=== PATIENT | female | born 1960 | race American Indian/Alaskan Native ===

== ENCOUNTER 2018-08-08 10:00 | Inpatient (IN) | payer MEDICARE ==
[2018-08-08] MEDS ORDERED: ZOFRAN IV ONE (10:53)
[2018-08-08] MEDS ORDERED: SUBLIMAZE IV ONE ×4 (10:53→19:08)
--- NOTE | 2018-08-08 11:03 | Emergency Department Report ---
ED General Adult HPI - General Chief complaint: Chest Pain Stated complaint: CHEST PAIN/L UNDERARM PAIN Time Seen by Provider: 08/08/18 10:46 Source: patient Mode of arrival: Ambulatory Limitations: No Limitations - History of Present Illness Initial comments: Patient is 58 years old female with history of arthritis, history of breast cancer with bilateral mastectomy in 2002. History of ovarian cancer in 2012. Patient presented to the ER complaining of left sided chest pain, sharp in nature and increases when she take a deep breath. Patient also noticed that she has some swelling in the mastectomy area on the left side that comes and goes for the last 2 weeks. Patient stated that she checked her blood pressure this morning at home and the reading was 230/120. Patient stated that she take clonidine and she took another tablets today to help. Patient denies any fever, chills, cough, nausea or vomiting. - Related Data Home Medications Medication Instructions Recorded Confirmed Last Taken Levothyroxine [Synthroid] 88 mcg PO QAM 04/23/13 01/31/15 01/31/15 amLODIPine [Norvasc] 5 mg PO DAILY 01/31/15 01/31/15 01/31/15 hydroCHLOROthiazide [HCTZ] 25 mg PO QDAY 01/31/15 01/31/15 01/31/15 Allergies Allergy/AdvReac Type Severity Reaction Status Date / Time morphine Allergy Severe Itching Verified 07/19/13 21:18 Latex, Natural Rubber Allergy dissolves Verified 07/19/13 11:38 skin figs Allergy Shortness Uncoded 07/09/13 14:31 of Breath lettuce Allergy Shortness Uncoded 07/09/13 14:31 of Breath onion Allergy Shortness Uncoded 07/09/13 14:31 of Breath peppers Allergy Shortness Uncoded 07/09/13 14:31 of Breath ED Review of Systems ROS: Stated complaint: CHEST PAIN/L UNDERARM PAIN Other details as noted in HPI Comment: All other systems reviewed and negative Constitutional: denies: chills, fever Respiratory: denies: cough, orthopnea, shortness of breath, SOB with exertion, SOB at rest, wheezing Cardiovascular: chest pain. denies: palpitations Gastrointestinal: denies: abdominal pain, nausea, vomiting, diarrhea, constipation, hematemesis, melena, hematochezia Musculoskeletal: denies: back pain Neurological: denies: headache, weakness, numbness, paresthesias, confusion, abnormal gait ED Past Medical Hx - Past Medical History Previous Medical History?: Yes Hx Hypertension: Yes (since 2002 Lisinopril) Hx Heart Attack/AMI: No Hx Congestive Heart Failure: No Hx Diabetes: No Hx Liver Disease: No Hx Arthritis: Yes (spine) Hx Headaches / Migraines: Yes (migraines) Hx Seizures: Yes (with ) Hx Asthma: No Hx COPD: No Hx HIV: No Additional medical history: hypothyroid, Zambrano's palsy, breast cancer - Surgical History Past Surgical History?: Yes Hx Breast Surgery: Yes (andrés mastectomy) Additional Surgical History: bilat mastectomy. left knee sx. left eye tumor - Social History Smoking Status: Former Smoker Substance Use Type: Alcohol, Prescribed - Medications Home Medications: Home Medications Medication Instructions Recorded Confirmed Last Taken Type Levothyroxine [Synthroid] 88 mcg PO QAM 04/23/13 01/31/15 01/31/15 History amLODIPine [Norvasc] 5 mg PO DAILY 01/31/15 01/31/15 01/31/15 History hydroCHLOROthiazide [HCTZ] 25 mg PO QDAY 01/31/15 01/31/15 01/31/15 History ED Physical Exam - General Limitations: No Limitations General appearance: alert, in no apparent distress - Head Head exam: Present: atraumatic, normocephalic, normal inspection - Eye Eye exam: Present: normal appearance, PERRL - ENT ENT exam: Present: normal exam, normal orophraynx, mucous membranes moist - Neck Neck exam: Present: normal inspection, full ROM. Absent: tenderness, meningismus, lymphadenopathy, thyromegaly - Respiratory Respiratory exam: Present: normal lung sounds bilaterally - Cardiovascular Cardiovascular Exam: Present: regular rate, normal rhythm, normal heart sounds - GI/Abdominal GI/Abdominal exam: Present: soft, normal bowel sounds. Absent: distended, tenderness, guarding, rebound, rigid, organomegaly, mass, bruit, pulsatile mass, hernia - Extremities Exam Extremities exam: Present: normal inspection, full ROM, normal capillary refill - Back Exam Back exam: Present: normal inspection, full ROM. Absent: CVA tenderness (R), CVA tenderness (L) - Neurological Exam Neurological exam: Present: alert, oriented X3, CN II-XII intact - Skin Skin exam: Present: warm, intact, normal color ED Course Vital Signs 08/08/18 08/08/18 10:12 13:08 Temperature 98.2 F Pulse Rate 87 Respiratory 18 20 Rate Blood Pressure 185/130 O2 Sat by Pulse 97 Oximetry - Reevaluation(s) Reevaluation #1: 08/08/18 16:43 While in the emergency room patient developed a generalized tonic clonic seizure, reported immediately with Ativan 2 mg. Patient received Keppra 1 g IV. ED Medical Decision Making - Lab Data Result diagrams: 08/08/18 10:57 08/08/18 10:57 - EKG Data -: EKG Interpreted by Mi EKG shows normal: sinus rhythm Rate: normal - EKG Data Interpretation: no acute changes - Radiology Data Radiology results: report reviewed - Medical Decision Making Patient is 58 years old female with history of arthritis, history of breast cancer with bilateral mastectomy in 2002. History of ovarian cancer in 2012. Patient presented to the ER complaining of left sided chest pain, sharp in nature and increases when she take a deep breath. Patient also noticed that she has some swelling in the mastectomy area on the left side that comes and goes for the last 2 weeks. Patient stated that she checked her blood pressure this morning at home and the reading was 230/120. Patient stated that she take clonidine and she took another tablets today to help. Patient denies any fever, chills, cough, nausea or vomiting. Labs reviewed and is unremarkable except for slightly elevated d-dimer for which patient had a VQ scan which is negative for pulmonary embolism. 2 sets of troponin is negative. Patient blood pressure was resistant. Patient received labetalol 20 mg IV, hydralazine 20 mg IV and nitroglycerin. Patient developed a generalized tonic colonic seizure in the ER for which patient received Ativan 2 mg and started on Keppra 1 g. Patient significant other stated that she had history of seizure and lost seizure was 6 months ago. I discussed the patient with Dr. Moser, he agreed to admit the patient to medical service for further management. Critical Care Time: Yes Critical care time in (mins) excluding proc time.: 30 Critical care attestation.: If time is entered above; I have spent that time in minutes in the direct care o f this critically ill patient, excluding procedure time. ED Disposition Clinical Impression: Chest pain, Seizure, Hypertensive emergency Disposition: DC-[id number] OP ADMIT IP TO THIS HOSP Is pt being admited?: Yes Condition: Stable Instructions: Chest Pain (ED), Hypertension (ED) Referrals: MARY PEREZ MD [Primary Care Provider] - 3-5 Days
[2018-08-08 11:21] LABS: Basophils % (Auto) 0.5 % (0.0-1.8); Eosinophils # (Auto) 0.1 K/mm3 (0.0-0.4); Eosinophils % (Auto) 2.2 % (0.0-4.3); Hematocrit 35.3 % (30.3-42.9); Hemoglobin 11.9 gm/dl (10.1-14.3); Lymphocytes # (Auto) 2.3 K/mm3 (1.2-5.4); Lymphocytes % (Auto) 35.9 % (13.4-35.0); Mean Corpuscular HGB Conc 34 % (30-34); Mean Corpuscular Volume 88 fl (79-97); Monocytes # (Auto) 0.3 K/mm3 (0.0-0.8); Monocytes % (Auto) 5.1 % (0.0-7.3); Platelet Count 339 K/mm3 (140-440); Red Blood Count 4.01 M/mm3 (3.65-5.03); Red Cell Distribution Width 15.7 % (13.2-15.2)
[2018-08-08 11:31] LABS: INR 0.97 (0.87-1.13)
[2018-08-08 11:32] LABS: Partial Thromboplastin Time 31.8 Sec. (24.2-36.6)
[2018-08-08 11:39] LABS: BUN/Creatinine Ratio 13; Blood Urea Nitrogen 9 mg/dL (7-17); Calcium 9.9 mg/dL (8.4-10.2); Hemolysis Index 9
[2018-08-08] MEDS ORDERED: NORMODYNE IV ONE (11:44)
[2018-08-08] MEDS: SUBLIMAZE IV ONE ×2 (12:10→20:35)
--- NOTE | 2018-08-08 12:20 | XRay Report ---
EXAM: XR CHEST ROUTINE 2V HISTORY: Chest Pain TECHNIQUE: PA and lateral chest x-ray dated August 06, 2018 at 11:24 AM. COMPARISON: None available. FINDINGS: The heart size and mediastinum are within normal limits. The lung garcia and costophrenic angles are clear. There is no acute parenchymal infiltrate, pleural effusion, or pneumothorax seen. The visua lized bony structures are within normal limits. IMPRESSION: 1. No evidence for acute cardiopulmonary disease seen. This document is electronically signed by Yusra Jay MD., August 08 2018 12:18:39 PM ET
[2018-08-08] MEDS ORDERED: NITROSTAT SL ONE (15:41)
[2018-08-08] MEDS ORDERED: APRESOLINE ONE (15:57)
--- NOTE | 2018-08-08 16:34 | Nuclear Medicine Report ---
PROCEDURE: NM LUNG SCAN PERF/VENT TECHNIQUE: Perfusion imaging of the lungs was performed in multiple planar projections. Ventilation images were obtained in the posterior projection during inhalation, equilibrium, and washout phases. Correlation with a chest x-ray dated 08/08/2018 was performed. DOSE: 12.0 millicuries Xe-133 gas; 4.5 millicuries 99m Tc MAA given IV. Injection site: RIGHT antecub ital fossa. HISTORY: CHEST PAIN,SOB, H/O DVT COMPARISONS: None . FINDINGS: The tracer distribution on perfusion imaging is homogeneous throughout. No unmatched segmental or sub segmental perfusion defects are identified to suggest the presence of pulmonary embolism. The ventilation study is also homogeneous and within normal limits. No evidence for gas trapping is n oted. IMPRESSION: Normal [place] V/Q scan This document is electronically signed by Cinthia Mcclelland MD., August 08 2018 04:32:51 PM ET
[2018-08-08] MEDS ORDERED: KEPPRA 1,000 MG/NS 0.75% 100ML 1,000 MG/100 ML BAG IV ONE (16:42)
[2018-08-08] MEDS ORDERED: ATIVAN ONE (16:44)
[2018-08-08] MEDS ORDERED: ATIVAN IV ONE (16:45)
--- NOTE | 2018-08-08 17:19 | Cat Scan Report ---
PROCEDURE: CT HEAD/BRAIN WO CON TECHNIQUE: Computerized tomography of the head was performed without contrast material. CT DOSE LENGTH PRODUCT: 805.4 mGycm HISTORY: seizure, elevated BP COMPARISONS: None . FINDINGS: Skull and scalp: Normal . Paranasal sinuses: Normal . Ventricles and subarachnoid spaces: Normal . Cerebrum: No evidence of hemorrhage, acute infarction or mass . Cerebellum and brainstem: No evidence of hemorrhage, acute infarction or mass . Vasculature: Normal . Other: None . IMPRESSION: No evidence of hemorrhage, acute infarction or mass . This document is electronically signed by Jeanna Chung MD., August 08 2018 05:16:58 PM ET
[2018-08-08] MEDS ORDERED: COREG PO ONE (19:08)
[2018-08-08] MEDS ORDERED: SUBLIMAZE ONE ×2 (19:12→19:23)
[2018-08-08] MEDS ORDERED: IBUPROFEN PO PRN (21:46)
[2018-08-08] MEDS ORDERED: ZOFRAN IV PRN (21:46)
[2018-08-08] MEDS ORDERED: DILAUDID IV PRN (21:46)
[2018-08-08] MEDS ORDERED: TYLENOL PO PRN (21:46)
[2018-08-08] MEDS ORDERED: SODIUM CHLORIDE FLUSH SYRINGE 10 ML IV PRN (21:46)
--- NOTE | 2018-08-08 21:46 | History and Physical Report ---
History of Present Illness Date of examination: 08/08/18 Date of admission: 08/08/18 18:27 Chief complaint: Chest pain for 2 weeks History of present illness: 58 years old female with history of arthritis, breast cancer with bilateral mastectomy in 2002 and ovarian cancer in 2012 presents to the ER complaining of left sided chest pain, sharp in nature and increases when she take a deep breath. Patient also noticed that she has some swelling in the mastectomy area on the left side that comes and goes for the last 2 weeks. Patient stated that she checked her blood pressure this morning at home and the reading was 230/120. Patient stated that she take clonidine and she took another tablets today to help. Patient denies any fever, chills, cough, nausea or vomiting. Past Medical History Previous Medical History?: Yes Hypertension: Yes (since 2002 Lisinopril) Arthritis: Yes (spine) Migraines: Yes (migraines) Seizures: Yes (with ) Additional medical history: hypothyroid, Zambrano's palsy, breast cancer Surgical History Past Surgical History?: Yes Hx Breast Surgery: Yes (andrés mastectomy) Additional Surgical History: bilat mastectomy. left knee sx. left eye tumor Social History Smoking Status: Former Smoker Substance Use Type: Alcohol, Prescribed Family History Htn Medications Home Medications: Home Medications Medication Instructions Recorded Confirmed Last Taken Type Levothyroxine [Synthroid] 88 mcg PO QAM 04/23/13 01/31/15 01/31/15 History amLODIPine [Norvasc] 5 mg PO DAILY 01/31/15 01/31/15 01/31/15 History hydroCHLOROthiazide [HCTZ] 25 mg PO QDAY 01/31/15 01/31/15 01/31/15 History Review of Systems ROS: Stated complaint: CHEST PAIN/L UNDERARM PAIN Other details as noted in HPI Comment: All other systems reviewed and negative Constitutional: denies: chills, fever Respiratory: denies: cough, orthopnea, shortness of breath, SOB with exertion, SOB at rest, wheezing Cardiovascular: chest pain. denies: palpitations Gastrointestinal: denies: abdominal pain, nausea, vomiting, diarrhea, constipation, hematemesis, melena, hematochezia Musculoskeletal: denies: back pain Neurological: denies: headache, weakness, numbness, paresthesias, confusion, abnormal gait Medications and Allergies Allergies Allergy/AdvReac Type Severity Reaction Status Date / Time morphine Allergy Severe Itching Verified 07/19/13 21:18 Latex, Natural Rubber Allergy dissolves Verified 07/19/13 11:38 skin figs Allergy Shortness Uncoded 07/09/13 14:31 of Breath lettuce Allergy Shortness Uncoded 07/09/13 14:31 of Breath onion Allergy Shortness Uncoded 07/09/13 14:31 of Breath peppers Allergy Shortness Uncoded 07/09/13 14:31 of Breath Home Medications Medication Instructions Recorded Confirmed Last Taken Type Levothyroxine [Synthroid] 88 mcg PO QAM 04/23/13 08/08/18 08/08/18 History amLODIPine [Norvasc] 5 mg PO DAILY 01/31/15 08/08/18 08/08/18 History hydroCHLOROthiazide [HCTZ] 25 mg PO QDAY 01/31/15 08/08/18 08/08/18 History Exam - Constitutional Vitals: Temp Pulse Resp BP Pulse Ox 98.2 F 103 H 12 126/102 98 08/08/18 10:12 08/08/18 19:30 08/08/18 19:30 08/08/18 20:30 08/08/18 20:30 General appearance: Present: no acute distress, well-nourished - EENT Eyes: Present: PERRL ENT: hearing intact, clear oral mucosa - Neck Neck: Present: supple, normal ROM - Respiratory Respiratory effort: normal Respiratory: bilateral: CTA - Cardiovascular Heart rate: 78 Rhythm: regular Heart Sounds: Present: S1 & S2. Absent: rub, click - Extremities Extremities: no ischemia, pulses intact, pulses symmetrical, No edema Peripheral Pulses: within normal limits - Abdominal General gastrointestinal: Present: soft, non-tender, non-distended, normal bowel sounds Female genitourinary: Present: normal - Rectal Rectal Exam: deferred - Integumentary Integumentary: Present: clear, warm, dry - Musculoskeletal Musculoskeletal: gait normal, strength equal bilaterally - Psychiatric Psychiatric: appropriate mood/affect, intact judgment & insight - Neurologic Neurologic: CNII-XII intact, moves all extremities - Allied Health Allied health notes reviewed: nursing Results - Labs CBC & Chem 7: 08/08/18 10:57 08/08/18 10:57 Labs: Laboratory Last Values WBC 6.4 K/mm3 (4.5-11.0) 08/08/18 10:57 RBC 4.01 M/mm3 (3.65-5.03) 08/08/18 10:57 Hgb 11.9 gm/dl (10.1-14.3) 08/08/18 10:57 Hct 35.3 % (30.3-42.9) 08/08/18 10:57 MCV 88 fl (79-97) 08/08/18 10:57 MCH 30 pg (28-32) 08/08/18 10:57 MCHC 34 % (30-34) 08/08/18 10:57 RDW 15.7 % (13.2-15.2) H 08/08/18 10:57 Plt Count 339 K/mm3 (140-440) 08/08/18 10:57 Lymph % (Auto) 35.9 % (13.4-35.0) H 08/08/18 10:57 [place] % (Auto) 5.1 % (0.0-7.3) 08/08/18 10:57 Eos % (Auto) 2.2 % (0.0-4.3) 08/08/18 10:57 Baso % (Auto) 0.5 % (0.0-1.8) 08/08/18 10:57 Lymph # 2.3 K/mm3 (1.2-5.4) 08/08/18 10:57 [place] # 0.3 K/mm3 (0.0-0.8) 08/08/18 10:57 Eos # 0.1 K/mm3 (0.0-0.4) 08/08/18 10:57 Baso # 0.0 K/mm3 (0.0-0.1) 08/08/18 10:57 Seg Neutrophils % 56.3 % (40.0-70.0) 08/08/18 10:57 Seg Neutrophils # 3.6 K/mm3 (1.8-7.7) 08/08/18 10:57 PT 13.5 Sec. (12.2-14.9) 08/08/18 10:57 INR 0.97 (0.87-1.13) 08/08/18 10:57 APTT 31.8 Sec. (24.2-36.6) 08/08/18 10:57 243.59 ng/mlDDU (0-234) H 08/08/18 10:57 Sodium 141 mmol/L (137-145) 08/08/18 10:57 Potassium 4.1 mmol/L (3.6-5.0) 08/08/18 10:57 Chloride 101.1 mmol/L (98-107) 08/08/18 10:57 Carbon Dioxide 25 mmol/L (22-30) 08/08/18 10:57 19 mmol/L 08/08/18 10:57 BUN 9 mg/dL (7-17) 08/08/18 10:57 0.7 mg/dL (0.7-1.2) 08/08/18 10:57 Estimated GFR > 60 ml/min 08/08/18 10:57 13 % 08/08/18 10:57 Glucose 144 mg/dL (65-100) H 08/08/18 10:57 Calcium 9.9 mg/dL (8.4-10.2) 08/08/18 10:57 < 0.010 ng/mL (0.00-0.029) 08/08/18 15:53 Short CBC 08/08/18 Range/Units 10:57 WBC 6.4 (4.5-11.0) K/mm3 Hgb 11.9 (10.1-14.3) gm/dl Hct 35.3 (30.3-42.9) % Plt Count 339 (140-440) K/mm3 BMP 08/08/18 10:57 Sodium 141 Potassium 4.1 Chloride 101.1 Carbon Dioxide 25 BUN 9 Creatinine 0.7 Glucose 144 H Calcium 9.9 Cardiac Enzymes 08/08/18 08/08/18 08/08/18 Range/Units 10:57 15:53 22:20 Troponin T < 0.010 < 0.010 < 0.010 (0.00-0.029) ng/mL Assessment and Plan Advance Directives: Yes (Full code) VTE prophylaxis?: Chemical Plan of care discussed with patient/family: Yes - Patient Problems (1) Hypertensive emergency Current Visit: Yes Status: Acute Plan to address problem: IV Hydralazine given in ER BP meds adjusted IV HYdralazine 10 mg q3 prn for BP >160/100 (2) Chest pain Current Visit: Yes Status: Acute Qualifiers: Chest pain type: unspecified Qualified Code(s): R07.9 - Chest pain, unspecified Plan to address problem: CHest pain w/u Lexiscan on Friday Derial Troponins Costochondritis is a possibility (3) HTN (hypertension) Current Visit: Yes Status: Chronic Qualifiers: Hypertension type: essential hypertension Qualified Code(s): I10 - Essential (primary) hypertension Plan to address problem: COnt AMlodipine and Losartan added (4) Hypothyroidism Current Visit: Yes Status: Chronic Qualifiers: Hypothyroidism type: acquired Qualified Code(s): E03.9 - Hypothyroidism, unspecified Plan to address problem: Cont Synthyroid Check TSH (5) Breast cancer in female Current Visit: Yes Status: Chronic Qualifiers: Estrogen receptor status: unspecified Laterality: unspecified laterality Plan to address problem: In remission (6) Ovarian cancer Current Visit: Yes Status: Chronic Qualifiers: Laterality: unspecified laterality Qualified Code(s): C56.9 - Malignant neoplasm of unspecified ovary Plan to address problem: In remission (7) DVT prophylaxis Current Visit: Yes Status: Acute Plan to address problem: On Lovenox and GI prophylaxis
[2018-08-08] MEDS ORDERED: D5/0.45NS 1,000 ML IV SCH (22:00)
[2018-08-08] MEDS: PEPCID PO SCH (22:54)
[2018-08-08] MEDS: SODIUM CHLORIDE FLUSH SYRINGE 10 ML IV SCH (22:54)
[2018-08-08] MEDS: HCTZ PO SCH (22:55)
[2018-08-08] MEDS: NORVASC PO SCH (22:55)
[2018-08-08] MEDS ORDERED: BENADRYL PO PRN (23:17)
[2018-08-09] MEDS ORDERED: SYNTHROID PO SCH (06:00)
[2018-08-09] MEDS ORDERED: APRESOLINE IV PRN (07:28)
[2018-08-09] MEDS: HumaLOG SUB-Q SCH ×4 (07:30→22:12)
[2018-08-09 09:48] LABS: Basophils % (Auto) 0.6 % (0.0-1.8); Eosinophils # (Auto) 0.2 K/mm3 (0.0-0.4); Eosinophils % (Auto) 2.3 % (0.0-4.3); Hematocrit 34.6 % (30.3-42.9); Hemoglobin 11.6 gm/dl (10.1-14.3); Lymphocytes # (Auto) 2.8 K/mm3 (1.2-5.4); Lymphocytes % (Auto) 38.3 % (13.4-35.0); Mean Corpuscular HGB Conc 34 % (30-34); Mean Corpuscular Volume 89 fl (79-97); Monocytes # (Auto) 0.4 K/mm3 (0.0-0.8); Monocytes % (Auto) 5.8 % (0.0-7.3); Red Blood Count 3.91 M/mm3 (3.65-5.03); Red Cell Distribution Width 15.5 % (13.2-15.2)
[2018-08-09 09:49] LABS: Platelet Count 328 K/mm3 (140-440)
[2018-08-09] MEDS ORDERED: COZAAR PO SCH ×2 (10:00)
[2018-08-09] MEDS: KEPPRA 750 MG in D5W 100 ML IV SCH ×3 (10:20→22:30)
[2018-08-09] MEDS: PERCOCET 5/325 PO PRN ×2 (10:20→22:07)
[2018-08-09] MEDS: PEPCID PO SCH ×2 (10:21→22:07)
[2018-08-09] MEDS: HCTZ PO SCH (10:21)
[2018-08-09] MEDS: NORVASC PO SCH (10:22)
[2018-08-09] MEDS: SODIUM CHLORIDE FLUSH SYRINGE 10 ML IV SCH ×2 (10:23→22:19)
[2018-08-09 10:31] LABS: Alanine Aminotransferase 19 units/L (7-56); Albumin 3.9 g/dL (3.9-5); BUN/Creatinine Ratio 16; Blood Urea Nitrogen 13 mg/dL (7-17); Calcium 9.7 mg/dL (8.4-10.2); Hemolysis Index 45
--- NOTE | 2018-08-09 13:26 | Progress Note ---
Assessment and Plan Assessment and plan: --Seizures : seizure precautions, Keppra, Ativan when necessary Neurology consult, EEG -- Hypertensive emergency IV Hydralazine given in ER BP meds adjusted IV HYdralazine 10 mg q3 prn for BP >160/100 -- Chest pain: Lexiscan on Friday Serial cardiac enzymes and EKG Costochondritis is a possibility -- HTN (hypertension) COnt AMlodipine and Losartan added -- Hypothyroidism Cont Synthyroid Check TSH -- H/O Breast cancer/Ovarian cancer in female In remission -- DVT prophylaxis Current Visit: Yes Status: Acute Plan to address problem: On Lovenox and GI prophylaxis History Interval history: Patient seen and examined medical records reviewed Patient feels slightly better no new complaints Stress test was rescheduled for tomorrow The patient is alert awake oriented vital signs reviewed Hospitalist Physical - Constitutional Vitals: Temp Pulse Resp BP Pulse Ox 98.0 F 81 20 137/100 100 08/09/18 11:42 08/09/18 11:42 08/09/18 11:42 08/09/18 11:42 08/09/18 11:42 General appearance: Present: no acute distress, well-nourished - EENT Eyes: Present: PERRL, EOM intact - Neck Neck: Present: supple, normal ROM - Respiratory Respiratory effort: normal Respiratory: bilateral: diminished, negative: rales, rhonchi, wheezing - Cardiovascular Rhythm: regular Heart Sounds: Present: S1 & S2 - Extremities Extremities: no ischemia, No edema - Abdominal General gastrointestinal: soft, non-tender, non-distended, normal bowel sounds - Integumentary Integumentary: Present: clear, warm - Psychiatric Psychiatric: appropriate mood/affect, cooperative - Neurologic Neurologic: CNII-XII intact, moves all extremities Results - Labs CBC & Chem 7: 08/09/18 08:29 08/09/18 08:29 Labs: Laboratory Last Values WBC 7.2 K/mm3 (4.5-11.0) 08/09/18 08:29 RBC 3.91 M/mm3 (3.65-5.03) 08/09/18 08:29 Hgb 11.6 gm/dl (10.1-14.3) 08/09/18 08:29 Hct 34.6 % (30.3-42.9) 08/09/18 08:29 MCV 89 fl (79-97) 08/09/18 08:29 MCH 30 pg (28-32) 08/09/18 08:29 MCHC 34 % (30-34) 08/09/18 08:29 RDW 15.5 % (13.2-15.2) H 08/09/18 08:29 Plt Count 328 K/mm3 (140-440) 08/09/18 08:29 Lymph % (Auto) 38.3 % (13.4-35.0) H 08/09/18 08:29 [place] % (Auto) 5.8 % (0.0-7.3) 08/09/18 08:29 Eos % (Auto) 2.3 % (0.0-4.3) 08/09/18 08:29 Baso % (Auto) 0.6 % (0.0-1.8) 08/09/18 08:29 Lymph # 2.8 K/mm3 (1.2-5.4) 08/09/18 08:29 [place] # 0.4 K/mm3 (0.0-0.8) 08/09/18 08:29 Eos # 0.2 K/mm3 (0.0-0.4) 08/09/18 08:29 Baso # 0.0 K/mm3 (0.0-0.1) 08/09/18 08:29 Seg Neutrophils % 53.0 % (40.0-70.0) 08/09/18 08:29 Seg Neutrophils # 3.8 K/mm3 (1.8-7.7) 08/09/18 08:29 PT 13.5 Sec. (12.2-14.9) 08/08/18 10:57 INR 0.97 (0.87-1.13) 08/08/18 10:57 APTT 31.8 Sec. (24.2-36.6) 08/08/18 10:57 243.59 ng/mlDDU (0-234) H 08/08/18 10:57 Sodium 142 mmol/L (137-145) 08/09/18 08:29 Potassium 3.8 mmol/L (3.6-5.0) 08/09/18 08:29 Chloride 101.2 mmol/L (98-107) 08/09/18 08:29 Carbon Dioxide 21 mmol/L (22-30) L 08/09/18 08:29 24 mmol/L 08/09/18 08:29 BUN 13 mg/dL (7-17) 08/09/18 08:29 0.8 mg/dL (0.7-1.2) 08/09/18 08:29 Estimated GFR > 60 ml/min 08/09/18 08:29 16 % 08/09/18 08:29 Glucose 138 mg/dL (65-100) H 08/09/18 08:29 POC Glucose 219 (70-105) H 08/09/18 11:52 8.2 % (4-6) H 08/08/18 22:20 Calcium 9.7 mg/dL (8.4-10.2) 08/09/18 08:29 0.40 mg/dL (0.1-1.2) 08/09/18 08:29 AST 19 units/L (5-40) 08/09/18 08:29 ALT 19 units/L (7-56) 08/09/18 08:29 70 units/L (35-129) 08/09/18 08:29 < 0.010 ng/mL (0.00-0.029) 08/09/18 08:29 7.2 g/dL (6.3-8.2) 08/09/18 08:29 3.9 g/dL (3.9-5) 08/09/18 08:29 1.2 % 08/09/18 08:29 TSH 7.330 mlU/mL (0.270-4.200) H 08/08/18 22:20 Active Medications - Current Medications Current Medications: Generic Name Dose Route Start Last Admin Trade Name Freq PRN Reason Stop Dose Admin Acetaminophen 650 mg 08/08/18 21:46 Tylenol PO Q4H PRN Pain MILD(1-3)/Fever >100.5/MONTEZ Amlodipine Besylate 5 mg 08/08/18 22:00 08/09/18 10:22 Norvasc PO 5 mg DAILY CRESENCIO Administration Diphenhydramine HCl 25 mg 08/08/18 23:17 Benadryl PO Q8H PRN sleep; itching Famotidine 20 mg 08/08/18 22:00 08/09/18 10:21 Pepcid PO 20 mg BID CRESENCIO Administration Hydralazine HCl 10 mg 08/09/18 07:28 Apresoline IV Q3H PRN Blood Pressure Hydrochlorothiazide 25 mg 08/08/18 22:00 08/09/18 10:21 Hctz PO 25 mg QDAY CRESENCIO Administration Hydromorphone HCl 0.5 mg 08/08/18 21:46 08/09/18 12:52 Dilaudid IV 0.5 mg Q3H PRN Administration Pain , Severe (7-10) Dextrose/Sodium Chloride 1,000 mls @ 75 mls/hr 08/08/18 22:00 08/09/18 10:25 D5/0.45ns IV 75 mls/hr DIRECT CRESENCIO Administration Levetiracetam 750 mg/ Dextrose 107.5 mls @ 400 mls/hr 08/09/18 07:28 08/09/18 10:20 IV 400 mls/hr Q12HR CRESENCIO Administration Ibuprofen 600 mg 08/08/18 21:46 08/08/18 22:54 Ibuprofen PO 600 mg Q6H PRN Administration Pain, Mild (1-3) Insulin Human Lispro 0 unit 08/09/18 07:30 08/09/18 11:27 Humalog SUB-Q Not Given [facility] Protocol Levothyroxine Sodium 88 mcg 08/09/18 06:00 08/09/18 06:50 Synthroid PO 88 mcg QAM@0600 CRESENCIO Administration Losartan Potassium 50 mg 08/09/18 10:00 08/09/18 10:22 Cozaar PO 50 mg QDAY CRESENCIO Administration Ondansetron HCl 4 mg 08/08/18 21:46 Zofran IV Q8H PRN Nausea And Vomiting Oxycodone/Acetaminophen 1 tab 08/08/18 21:46 08/09/18 10:20 Percocet 5/325 PO 1 tab Q6H PRN Administration Pain, Moderate (4-6) Sodium Chloride 10 ml 08/08/18 22:00 08/09/18 10:23 Sodium Chloride Flush Syringe 10 Ml IV 10 ml BID CRESENCIO Administration Sodium Chloride 10 ml 08/08/18 21:46 Sodium Chloride Flush Syringe 10 Ml IV PRN PRN LINE FLUSH
[2018-08-09] MEDS ORDERED: ATIVAN ONE (18:21)
[2018-08-09] MEDS ORDERED: ATIVAN IV PRN (18:29)
--- NOTE | 2018-08-09 18:39 | Event Note ---
Date: 08/09/18 Code MET was called for Seizure activity Patient is already receiving IV Keppra I came to evaluate the patient patient is postictal, lethargic Responding to simple commands, IV Ativan 2 mg stat Every 12 hours when necessary for seizure, seizure precautions Neurology consult, EEG Plan of care discussed with the patient and the at the bedside As well as the nurse
[2018-08-09] MEDS ORDERED: ZOFRAN IV PRN (19:31)
--- NOTE | 2018-08-10 08:23 | Progress Note ---
Subjective Date of service: 08/10/18 Interval history: likely cause of the seizures is HTN the CT of the head is normal to my view but recommend MRI and will get EEG agree with the tx plan Objective - Vital Sign Vital Signs - 12hr 08/09/18 08/09/18 08/10/18 21:00 22:00 05:00 Temperature Pulse Rate 88 75 Pulse Rate [ 88 From Monitor] Respiratory Rate Blood Pressure O2 Sat by Pulse 100 Oximetry 08/10/18 05:07 Temperature 98.3 F Pulse Rate 83 Pulse Rate [ From Monitor] Respiratory 18 Rate Blood Pressure 136/91 O2 Sat by Pulse 96 Oximetry - Laboratory Findings CBC and BMP: 08/09/18 08:29 08/09/18 08:29 Abnormal Lab Findings: Abnormal Labs 08/08/18 08/08/18 08/08/18 10:57 10:57 10:57 RDW 15.7 H Lymph % (Auto) 35.9 H D-Dimer 243.59 H Carbon Dioxide Glucose 144 H POC Glucose Hemoglobin A1c TSH 08/08/18 08/08/18 08/08/18 22:07 22:20 22:20 RDW Lymph % (Auto) D-Dimer Carbon Dioxide Glucose POC Glucose 132 H Hemoglobin A1c 8.2 H TSH 7.330 H 08/09/18 08/09/18 08/09/18 08:29 08:29 10:20 RDW 15.5 H Lymph % (Auto) 38.3 H D-Dimer Carbon Dioxide 21 L Glucose 138 H POC Glucose 172 H Hemoglobin A1c TSH 08/09/18 08/09/18 08/09/18 11:52 16:40 20:50 RDW Lymph % (Auto) D-Dimer Carbon Dioxide Glucose POC Glucose 219 H 224 H 155 H Hemoglobin A1c TSH
[2018-08-10 09:13] VITALS: BP 131/86
--- NOTE | 2018-08-10 17:00 | Discharge Summary ---
Providers - Providers Date of Admission: 08/08/18 18:27 Date of discharge: 08/10/18 Attending physician: ZIYAD SMITH 08/09/18 18:40 Consult to Physician [CONS] Routine Comment: Consulting Provider: MATILDA MILLARD Physician Instructions: Reason For Exam: seizures Primary care physician: MARY PEREZ Hospitalization Reason for admission: chest pain/uncontrolled blood pressures Condition: Stable Pertinent studies: CT head without contrast ;no evidence of hemorrhage or acute infarction or mass Chest x-ray; no acute abnormality Hospital course: 58 years old female with history of arthritis, breast cancer with bilateral mastectomy in 2002 and ovarian cancer in 2012 was admitted through ER with the chest pain, and uncontrolled blood pressures with pink pressure of 230/120 Admitted to the hospital placed on multiple antihypertensives and when necessary medications Patient also has history of seizure, placed on seizure precautions and antiepileptic medications Patient symptoms are gradually improving however did not want to continue the treatment wanted to leave AGAINST MEDICAL ADVICE Patient counseled the importance of radiating to the treatment plan, risks and consequences send complications of Leaving AMA were discussed with the patient, patient verbalized understanding And left AMA Patient was encouraged to go to emergency room or contact the M.D. should she have any symptoms Discharge diagnosis; --Seizures : seizure precautions, Keppra, Ativan when necessary Neurology consult, EEG -- Hypertensive emergency IV Hydralazine given in ER BP meds adjusted IV HYdralazine 10 mg q3 prn for BP >160/100 -- Chest pain: Lexiscan on Friday Serial cardiac enzymes and EKG Costochondritis is a possibility -- HTN (hypertension) COnt AMlodipine and Losartan added -- Hypothyroidism Cont Synthyroid Check TSH -- H/O Breast cancer/Ovarian cancer in female In remission -- DVT prophylaxis On Lovenox and GI prophylaxis Patient left AMA Disposition: DC-07 LEFT AGAINST MED ADVICE Time spent for discharge: 32min Core Measure Documentation - Palliative Care Palliative Care/ Comfort Measures: Not Applicable - Core Measures Any of the following diagnoses?: none Exam - Constitutional Vitals: Temp Pulse Resp BP Pulse Ox 98.3 F 83 18 131/86 99 08/10/18 05:07 08/10/18 07:16 08/10/18 05:07 08/10/18 07:16 08/10/18 07:16 General appearance: Present: no acute distress, well-nourished - EENT Eyes: Present: PERRL, EOM intact - Neck Neck: Present: supple, normal ROM - Respiratory Respiratory effort: normal Respiratory: negative: rales, rhonchi, wheezing - Extremities Extremities: no ischemia, No edema - Abdominal General gastrointestinal: Present: soft, non-tender, non-distended, normal bowel sounds - Integumentary Integumentary: Present: clear, warm - Musculoskeletal Musculoskeletal: strength equal bilaterally, generalized weakness - Psychiatric Psychiatric: appropriate mood/affect, cooperative - Neurologic Neurologic: CNII-XII intact, moves all extremities Plan Activity: no driving until cleared by PCP, other (seizure precautions) Diet: regular Follow up with: MARY PEREZ MD [Primary Care Provider] - 3-5 Days
== END 2018-08-10 11:35 | disposition left against medical advice (07) | DRG 305 ==
LOC: ED 10:00 → 4A 18:27
PROVIDERS: ADMIT Internal Medicine; ATTEND Internal Medicine
DX: I16.1 Hypertensive emergency (principal); C56.9 Malignant neoplasm of unspecified ovary; R56.9 Unspecified convulsions; M19.90 Unspecified osteoarthritis, unspecified site; G43.909 Migraine, unspecified, not intractable, without status migrainosus; E03.9 Hypothyroidism, unspecified; Z87.891 Personal history of nicotine dependence; Z53.21 Procedure and treatment not carried out due to patient leaving prior to being seen by health care provider; Z90.13 Acquired absence of bilateral breasts and nipples; Z85.3 Personal history of malignant neoplasm of breast
CPT/HCPCS: 36415; 70450; 71046; 78582; 80048; 80053; 82962; 83036; 84443; 84484; 85025; 85379; 85610; 85730; 93005; 93010; G0378; A9540; A9558; J0360; J1170; J1815; J1953; J2060; J2405; J3010

== ENCOUNTER 2019-05-01 07:57 | Observation (INO) | payer MEDICARE ==
--- NOTE | 2019-05-01 08:43 | XRay Report ---
CHEST 1 VIEW INDICATION / CLINICAL INFORMATION: Chest Pain. COMPARISON: None available. FINDINGS: SUPPORT DEVICES: None. HEART / MEDIASTINUM: No significant abnormality. LUNGS / PLEURA: No significant pulmonary or pleural abnormality. No pneumothorax. ADDITIONAL FINDINGS: No significant additional findings. IMPRESSION: 1. No acute findings. Signer Name: Mahad Pinto MD Signed: 05/01/2019 8:39 AM Workstation Name: [id number]
[2019-05-01 09:11] LABS: Basophils % (Auto) 0.4 % (0.0-1.8); Eosinophils # (Auto) 0.1 K/mm3 (0.0-0.4); Eosinophils % (Auto) 1.7 % (0.0-4.3); Hematocrit 36.5 % (30.3-42.9); Hemoglobin 12.2 gm/dl (10.1-14.3); Lymphocytes # (Auto) 1.7 K/mm3 (1.2-5.4); Lymphocytes % (Auto) 36.9 % (13.4-35.0); Mean Corpuscular HGB Conc 33 % (30-34); Mean Corpuscular Volume 90 fl (79-97); Monocytes # (Auto) 0.3 K/mm3 (0.0-0.8); Monocytes % (Auto) 5.7 % (0.0-7.3); Platelet Count 379 K/mm3 (140-440); Red Blood Count 4.06 M/mm3 (3.65-5.03); Red Cell Distribution Width 14.7 % (13.2-15.2)
--- NOTE | 2019-05-01 09:31 | Emergency Department Report ---
ED Chest Pain HPI - General Chief Complaint: Chest Pain Stated Complaint: CHEST PAIN Time Seen by Provider: 05/01/19 09:26 Source: patient Mode of arrival: Ambulatory Limitations: No Limitations - History of Present Illness Initial Comments: Patient is 58 years old female with history of hypertension, diabetes and atrial fibrillation. Patient presented to the emergency room complaining of left-sided chest pain that radiated to the left arm. Patient stated that her chest pain started this morning. She stated that she noticed her heart rate go to 140 and she took an extra dose of her metoprolol and that helped a lot with palpitation. Patient stated that she was released from [facility] 3 days ago for atrial fibrillation with RVR. Patient denied any shortness of breath, nausea or vomiting. No abdominal pain. MD Complaint: chest pain Severity scale (0 -10): 10 - Related Data Home Medications Medication Instructions Recorded Confirmed Last Taken Levothyroxine [Synthroid] 88 mcg PO QAM 04/23/13 08/08/18 08/08/18 amLODIPine [Norvasc] 5 mg PO DAILY 01/31/15 08/08/18 08/08/18 hydroCHLOROthiazide [HCTZ] 25 mg PO QDAY 01/31/15 08/08/18 08/08/18 ALPRAZolam 0.25 mg PO BID 08/09/18 08/09/18 Unknown Aspirin 81 mg PO DAILY 08/09/18 08/09/18 Unknown Atorvastatin Calcium 40 mg PO DAILY 08/09/18 08/09/18 Unknown Benefiber Healthy Shape 1 PO DAILY 08/09/18 Unknown Clonidine HCl 0.3 mg PO TID 08/09/18 08/09/18 Unknown Glimepiride 2 mg PO BID 08/09/18 08/09/18 Unknown Levothyroxine Sodium 25 mcg PO DAILY 08/09/18 08/09/18 Unknown Linzess 145 mg PO DAILY 08/09/18 08/09/18 Unknown Pantoprazole Sodium 40 mg PO DAILY 08/09/18 08/09/18 Unknown Welchol 625 mg PO BID 08/09/18 08/09/18 Unknown metFORMIN 1,000 mg PO BID 08/09/18 08/09/18 Unknown oxyCODONE /ACETAMINOPHEN 5 - 325 mg PO DAILY 08/09/18 08/09/18 Unknown Allergies Allergy/AdvReac Type Severity Reaction Status Date / Time morphine Allergy Severe Itching Verified 07/19/13 21:18 Latex, Natural Rubber Allergy dissolves Verified 07/19/13 11:38 skin figs Allergy Shortness Uncoded 07/09/13 14:31 of Breath lettuce Allergy Shortness Uncoded 07/09/13 14:31 of Breath onion Allergy Shortness Uncoded 07/09/13 14:31 of Breath peppers Allergy Shortness Uncoded 07/09/13 14:31 of Breath Heart Score - HEART Score History: Moderately suspicious EKG: Non-specific Age: 45-65 Risk factors: > 3 risk factors or hx of atherosclerotic disease Troponin: < normal limit HEART Score: 5 - Critical Actions Critical Actions: 4-6 pts:12-16.6% risk of adverse cardiac event. Should be admitted ED Review of Systems ROS: Stated complaint: CHEST PAIN Other details as noted in HPI Comment: All other systems reviewed and negative Constitutional: denies: chills, fever Respiratory: denies: cough, shortness of breath Cardiovascular: chest pain, palpitations Gastrointestinal: denies: abdominal pain, nausea, vomiting ED Past Medical Hx - Past Medical History Previous Medical History?: Yes Hx Hypertension: Yes (since 2002 Lisinopril) Hx Heart Attack/AMI: No Hx Congestive Heart Failure: No Hx Diabetes: Yes Hx Liver Disease: No Hx Arthritis: Yes (spine) Hx Headaches / Migraines: Yes (migraines) Hx Seizures: Yes (with ) Hx Asthma: Yes (childhood) Hx COPD: No Hx HIV: No Additional medical history: hypothyroid, Zambrano's palsy, breast cancer, Afib - Surgical History Past Surgical History?: Yes Hx Breast Surgery: Yes (andrés mastectomy) Additional Surgical History: bilat mastectomy. left knee sx. left eye tumor - Social History Smoking Status: Former Smoker Substance Use Type: None - Medications Home Medications: Home Medications Medication Instructions Recorded Confirmed Last Taken Type Levothyroxine [Synthroid] 88 mcg PO QAM 04/23/13 08/08/18 08/08/18 History amLODIPine [Norvasc] 5 mg PO DAILY 01/31/15 08/08/18 08/08/18 History hydroCHLOROthiazide [HCTZ] 25 mg PO QDAY 01/31/15 08/08/18 08/08/18 History ALPRAZolam 0.25 mg PO BID 08/09/18 08/09/18 Unknown History Aspirin 81 mg PO DAILY 08/09/18 08/09/18 Unknown History Atorvastatin Calcium 40 mg PO DAILY 08/09/18 08/09/18 Unknown History Benefiber Healthy Shape 1 PO DAILY 08/09/18 Unknown History Clonidine HCl 0.3 mg PO TID 08/09/18 08/09/18 Unknown History Glimepiride 2 mg PO BID 08/09/18 08/09/18 Unknown History Levothyroxine Sodium 25 mcg PO DAILY 08/09/18 08/09/18 Unknown History Linzess 145 mg PO DAILY 08/09/18 08/09/18 Unknown History Pantoprazole Sodium 40 mg PO DAILY 08/09/18 08/09/18 Unknown History Welchol 625 mg PO BID 08/09/18 08/09/18 Unknown History metFORMIN 1,000 mg PO BID 08/09/18 08/09/18 Unknown History oxyCODONE /ACETAMINOPHEN 5 - 325 mg PO DAILY 08/09/18 08/09/18 Unknown History ED Physical Exam - General Limitations: No Limitations General appearance: alert, in no apparent distress - Head Head exam: Present: atraumatic, normocephalic, normal inspection - Eye Eye exam: Present: normal appearance - ENT ENT exam: Present: normal exam, normal orophraynx, mucous membranes moist - Neck Neck exam: Present: normal inspection, full ROM. Absent: tenderness, meningismus, lymphadenopathy, thyromegaly - Respiratory Respiratory exam: Present: normal lung sounds bilaterally - Cardiovascular Cardiovascular Exam: Present: irregular rhythm - GI/Abdominal GI/Abdominal exam: Present: soft, normal bowel sounds. Absent: distended, tenderness, guarding, rebound, rigid, organomegaly, mass, bruit, pulsatile mass, hernia - Extremities Exam Extremities exam: Present: normal inspection, full ROM, normal capillary refill. Absent: pedal edema, calf tenderness - Back Exam Back exam: Present: normal inspection, full ROM. Absent: CVA tenderness (R), CVA tenderness (L), muscle spasm, paraspinal tenderness, vertebral tenderness, rash noted - Neurological Exam Neurological exam: Present: alert, oriented X3, CN II-XII intact, normal gait, reflexes normal. Absent: motor sensory deficit - Psychiatric Psychiatric exam: Present: normal mood - Skin Skin exam: Present: warm, intact, normal color ED Course Vital Signs 05/01/19 08:00 Temperature 98.0 F Pulse Rate 65 Respiratory 22 Rate Blood Pressure 141/102 Blood Pressure 141/102 [Right] O2 Sat by Pulse 100 Oximetry ED Medical Decision Making - Lab Data Result diagrams: 05/01/19 09:00 05/01/19 09:00 - EKG Data -: EKG Interpreted by Me Rate: normal - EKG Data Interpretation: no acute changes 05/01/19 10:13 Atrial fibrillation with no RVR. - Medical Decision Making Patient is 58 years old female with history of hypertension, diabetes and atrial fibrillation. Patient presented to the emergency room complaining of left-si ded chest pain that radiated to the left arm. Patient stated that her chest pain started this morning. She stated that she noticed her heart rate go to 140 and she took an extra dose of her metoprolol and that helped a lot with palpitation. Patient stated that she was released from [facility] 3 days ago for atrial fibrillation with RVR. Patient denied any shortness of breath, nausea or vomiting. No abdominal pain. EKG showed A. fib with no RVR, no ST elevation or depression. Labs reviewed and is unremarkable including first set of troponin. Chest x-ray is negative for acute finding. I spoke to Dr. Dos Santos who advised to admit the patient to Dr. Weaver. Critical care attestation.: If time is entered above; I have spent that time in minutes in the direct care of this critically ill patient, excluding procedure time. ED Disposition Clinical Impression: Chest pain Disposition: OP ADMIT IP TO THIS HOSP Is pt being admited?: Yes Condition: Stable Instructions: Chest Pain (ED)
[2019-05-01 09:36] LABS: Alanine Aminotransferase 13 units/L (7-56); Albumin 4.6 g/dL (3.9-5); BUN/Creatinine Ratio 14; Blood Urea Nitrogen 10 mg/dL (7-17); Calcium 11.1 mg/dL (8.4-10.2); Hemolysis Index 90
[2019-05-01] MEDS ORDERED: ASPIRIN 81 MG TAB CHEW PO ONE (10:10)
[2019-05-01] MEDS ORDERED: ASPIRIN 325 MG TAB ONE (11:04)
[2019-05-01] MEDS ORDERED: ASPIRIN 81 MG TAB CHEW ONE (11:08)
[2019-05-01] MEDS ORDERED: ACETAMINOPHEN 325 MG TAB PO PRN (11:13)
[2019-05-01] MEDS ORDERED: NALOXONE 0.4 MG/1 ML INJ IV PRN (11:13)
[2019-05-01] MEDS ORDERED: ONDANSETRON 4 MG/2 ML INJ IV PRN (11:13)
[2019-05-01] MEDS ORDERED: DEXTROSE 50% IN WATER (25GM) 50 ML SYRINGE IV PRN ×2 (11:13→11:59)
--- NOTE | 2019-05-01 11:16 | History and Physical Report ---
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 Per the patient she noted that her heart rate had gone up to the 140s she did take an extra dose of her metoprolol which she said helped with the palpitations. She was initially seen at [facility] recently and was managed for recurrent abdominal swelling. She reports that studies during that facility visit showed that it was the Behcet's disease that was causing it. She has had multiple evaluations at different hospitals including for prior suicidal ideation without attempts. The chest pain at this time she says is a 5/10 in intensity aggravated by movement but not by palpitation and also with deep breaths. Initial work-up in the ED including EKG is normal. Past History Past Medical History: atrial fib, cancer (Breast ), diabetes, GERD, hypertension , hyperlipidemia, hypothyroidism, seizures, other (Behcets disease, Brain aneurysm, post menopausal, Recurrent abdominal swelling, anxiety, Peripheral neuropathy, kidney cyst-left, constipation, chronic steroid dependance, RLS, Insomnia,) Past Surgical History: Other (double mastectomy) Medications and Allergies Allergies Allergy/AdvReac Type Severity Reaction Status Date / Time Latex, Natural Rubber Allergy dissolves Verified 07/19/13 11:38 skin figs Allergy Shortness Uncoded 07/09/13 14:31 of Breath lettuce Allergy Shortness Uncoded 07/09/13 14:31 of Breath onion Allergy Shortness Uncoded 07/09/13 14:31 of Breath peppers Allergy Shortness Uncoded 07/09/13 14:31 of Breath Home Medications Medication Instructions Recorded Confirmed Last Taken Type Linzess 290 mg PO DAILY 08/09/18 05/01/19 Unknown History ALPRAZolam [Xanax TAB] 0.25 mg PO BID 05/01/19 05/01/19 Unknown History Apixaban [Eliquis] 5 mg PO DAILY 05/01/19 05/01/19 Unknown History Atorvastatin Calcium [Lipitor] 40 mg PO HS 05/01/19 05/01/19 Unknown History Gabapentin 300 mg PO HS 05/01/19 05/01/19 Unknown History Levothyroxine [Synthroid] 25 mcg PO DAILY 05/01/19 05/01/19 Unknown History Lidocaine [Lidoderm] 5 each TP DAILY 05/01/19 05/01/19 Unknown History Metformin HCl [metFORMIN] 1,000 mg PO BID 05/01/19 05/01/19 Unknown History Spironolactone [Aldactone] 25 mg PO QDAY 05/01/19 05/01/19 Unknown History carvediloL [Coreg] 25 mg PO DAILY 05/01/19 05/01/19 Unknown History oxyCODONE /ACETAMINOPHEN [Percocet 325 mg PO PRN PRN 05/01/19 05/01/19 Unknown History 5/325 mg] Active Meds: Active Medications Amlodipine Besylate (Amlodipine) 5 mg PO DAILY [facility] Hydrochlorothiazide (Hctz) 25 mg PO QDAY [facility] Levothyroxine Sodium (Synthroid) 88 mcg PO QAM [facility] Miscellaneous Medication (Alprazolam) 0.25 mg PO BID [facility] Miscellaneous Medication (Aspirin) 81 mg PO DAILY [facility] Miscellaneous Medication (Atorvastatin Calcium) 40 mg PO DAILY [facility] Miscellaneous Medication (Clonidine Hcl) 0.3 mg PO TID [facility] Miscellaneous Medication (Levothyroxine Sodium) 25 mcg PO DAILY [facility] Miscellaneous Medication (Linzess) 145 mg PO DAILY [facility] Miscellaneous Medication (Pantoprazole Sodium) 40 mg PO DAILY [facility] Miscellaneous Medication (Welchol) 625 mg PO BID [facility] Review of Systems All systems: negative Constitutional: lethargy, chronic pain Cardiovascular: chest pain, palpitations, no lightheadedness, no shortness of breath, no dyspnea on exertion, no paroxysmal nocturnal dyspnea, no claudication, no phlebitis Respiratory: no dyspnea on exertion Gastrointestinal: no nausea, no vomiting, no loss of appetite, no indigestion, no dyspepsia/bloating Musculoskeletal: shooting arm pain, no shooting leg pain, no leg numbness/tingling, no redness of joints, no morning stiffness, no muscle weakness, no muscle cramps, no atrophy, no fractures, no prior amputations Integumentary: no pruritis, no sores, no jaundice, no boils, no bullae, no darkening of skin, no dryness, no brittle nails, no striae, no onychomycosis Neurological: no head injury, no paralysis, no numbness, no tremors, no convulsions, no change in mentation, no confusion, no sensory deficit, no loss of vision, no burning pain Psychiatric: anxiety, depression Endocrine: no heat intolerance, no polydipsia, no nocturia, no increase in ring/shoe/hat size, no thyroid mass, no recent glucocorticoid use Hematologic/Lymphatic: no easy bruising Allergic/Immunologic: no urticaria, no allergic rhinitis, no angioedema Exam - Physical Exam Narrative exam: VITAL SIGNS: Reviewed. GENERAL: The patient appears normally developed, Vital signs as documented. HEAD: No signs of head trauma. EYES: Pupils are equal. Extraocular motions intact. EARS: Hearing grossly intact. MOUTH: Oropharynx is normal. NECK: No adenopathy, no JVD. CHEST: Chest with clear breath sounds bilaterally. No wheezes, rales, or rhonchi. CARDIAC: Regular rate and rhythm. S1 and S2, without murmurs, gallops, or rubs. VASCULAR: No Edema. Peripheral pulses normal and equal in all extremities. ABDOMEN: Soft, non tender and non distended. No rebound or guarding, and no masses palpated. Bowel Sounds normal. MUSCULOSKELETAL: Good range of motion of all major joints. Extremities without clubbing, cyanosis or edema. NEUROLOGIC EXAM: Alert and oriented x 3 No focal sensory or strength deficits. Speech normal. Follows commands. PSYCHIATRIC: Mood normal. SKIN: detial exam as documented in skin assessment - Constitutional Vitals: Temp Pulse Resp BP Pulse Ox 98.0 F 65 22 141/102 100 05/01/19 08:00 05/01/19 08:00 05/01/19 08:00 05/01/19 08:00 05/01/19 08:00 Results - Labs CBC & Chem 7: 05/02/19 05:41 05/02/19 05:41 Labs: Laboratory Last Values WBC 4.7 K/mm3 (4.5-11.0) 05/01/19 09:00 RBC 4.06 M/mm3 (3.65-5.03) 05/01/19 09:00 Hgb 12.2 gm/dl (10.1-14.3) 05/01/19 09:00 Hct 36.5 % (30.3-42.9) 05/01/19 09:00 MCV 90 fl (79-97) 05/01/19 09:00 MCH 30 pg (28-32) 05/01/19 09:00 MCHC 33 % (30-34) 05/01/19 09:00 RDW 14.7 % (13.2-15.2) 05/01/19 09:00 Plt Count 379 K/mm3 (140-440) 05/01/19 09:00 Lymph % (Auto) 36.9 % (13.4-35.0) H 05/01/19 09:00 Lamb % (Auto) 5.7 % (0.0-7.3) 05/01/19 09:00 Eos % (Auto) 1.7 % (0.0-4.3) 05/01/19 09:00 Baso % (Auto) 0.4 % (0.0-1.8) 05/01/19 09:00 Lymph # 1.7 K/mm3 (1.2-5.4) 05/01/19 09:00 Lamb # 0.3 K/mm3 (0.0-0.8) 05/01/19 09:00 Eos # 0.1 K/mm3 (0.0-0.4) 05/01/19 09:00 Baso # 0.0 K/mm3 (0.0-0.1) 05/01/19 09:00 Seg Neutrophils % 55.3 % (40.0-70.0) 05/01/19 09:00 Seg Neutrophils # 2.6 K/mm3 (1.8-7.7) 05/01/19 09:00 Sodium 139 mmol/L (137-145) 05/01/19 09:00 Potassium 4.4 mmol/L (3.6-5.0) 05/01/19 09:00 Chloride 100.2 mmol/L (98-107) 05/01/19 09:00 Carbon Dioxide 22 mmol/L (22-30) 05/01/19 09:00 Anion Gap 21 mmol/L 05/01/19 09:00 BUN 10 mg/dL (7-17) 05/01/19 09:00 Creatinine 0.7 mg/dL (0.7-1.2) 05/01/19 09:00 Estimated GFR > 60 ml/min 05/01/19 09:00 BUN/Creatinine Ratio 14 % 05/01/19 09:00 Glucose 168 mg/dL (65-100) H 05/01/19 09:00 Calcium 11.1 mg/dL (8.4-10.2) H 05/01/19 09:00 Total Bilirubin 0.40 mg/dL (0.1-1.2) 05/01/19 09:00 AST 22 units/L (5-40) 05/01/19 09:00 ALT 13 units/L (7-56) 05/01/19:00 Alkaline Phosphatase 68 units/L (35-129) 05/01/19:00 Troponin T < 0.010 ng/mL (0.00-0.029) 05/01/19:00 Total Protein 7.9 g/dL (6.3-8.2) 05/01/19 09:00 Albumin 4.6 g/dL (3.9-5) 05/01/19:00 Albumin/Globulin Ratio 1.4 % 05/01/19 09:00 - Imaging and Cardiology Chest x-ray: image reviewed (SHORTNESS OF BREATH) Assessment and Plan Assessment and plan: Patient is a 58-year-old female with multiple medical problems including hypertension, diabetes mellitus, atrial fibrillation, 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 Per the patient she noted that her heart rate had gone up to the 140s she did take an extra dose of her metoprolol which she said helped with the palpitations. She was initially seen at [facility] recently and was managed for recurrent abdominal swelling. She reports that studies during that facility visit showed that it was the Behcet's disease that was causing it. She has had multiple evaluations at different hospitals including for prior suicidal ideation without attempts. The chest pain at this time she says is a 5/10 in intensity aggravated by movement but not by palpitation and also with deep breaths. Initial work-up in the ED including EKG is normal. Left sided chest pain, worse with movement not reproducible Atrial fibrillation with RVR now resolved paroxysmal Recent visit to [facility] due to complication of Rare Auto immune disorder with recurrent abdominal swelling Mild shortness of breath Depression Debility due to chest pain Behcets disease, Brain aneurysm per hx, Recurrent abdominal swelling, Peripheral neuropathy, constipation, chronic steroid dependance, RLS, Insomnia, Bipolar disorder/anxiety Hyperlipidemia Diabetes Recurrent breast cancer/Bilateral mastectomy Reports cerebral aneurysm Plan Admit to tele Placed on chest pain protocol Review of record shows that the patient is not on steroids at this time she chronically is normally on steroids she is not sure why. She reviewed her records. Obtain cardiology consultation considering atrial fibrillation Anticipate discharge in a.m. pending cardiology evaluation Pain control DVT and GI prophylaxis We will also consider a Mental evaluation. Advance Directives: Yes Plan of care discussed with patient/family: Yes
[2019-05-01] MEDS ORDERED: cloNIDine 0.1 MG TAB PO PRN (12:01)
[2019-05-01] MEDS ORDERED: MORPHINE 2 MG/1 ML INJ ONE (12:12)
[2019-05-01] MEDS: MORPHINE 2 MG/1 ML INJ IV PRN ×2 (12:13→23:38)
[2019-05-01] MEDS ORDERED: cloNIDine 0.1 MG TAB PO SCH (14:00)
--- NOTE | 2019-05-01 14:45 | Consultation ---
History of Present Illness Consult date: 05/01/19 Consult reason: chest pain History of present illness: 58-year-old female with multiple medical problems presents to [facility] complaining of chest pain radiating down her left arm. Of note the patient was recently discharged from [facility] with abdominal pain and diarrhea. During this admission she had an MRI of the abdomen and pelvis which did not find any acute findings. She also was evaluated for suicidal ideation without attempt. A twelve-lead EKG reveals sinus rhythm with no significant abnormalities. The patient's cardiac enzymes are negative x1.Of note the patient had a recent myocardial perfusion scan March 16, 2019 at [facility] which did not reveal any significant ischemia or evidence of an old infarction. EF of 74%. An echocardiogram from October 2018 revealed grade 1 diastolic dysfunction with an EF of 63%. Past History Past Medical History: atrial fib, cancer (Breast ), diabetes, GERD, hypertension, hyperlipidemia, hypothyroidism, seizures, other (Behcets disease, Brain aneurysm, post menopausal, Recurrent abdominal swelling, anxiety, Peripheral neuropathy, kidney cyst-left, constipation, chronic steroid dependance, RLS, Insomnia,) Past Surgical History: Other (double mastectomy) Social history: denies: alcohol abuse, IV drug use Medications and Allergies Allergies Allergy/AdvReac Type Severity Reaction Status Date / Time morphine Allergy Severe Itching Verified 07/19/13 21:18 Latex, Natural Rubber Allergy dissolves Verified 07/19/13 11:38 skin figs Allergy Shortness Uncoded 07/09/13 14:31 of Breath lettuce Allergy Shortness Uncoded 07/09/13 14:31 of Breath onion Allergy Shortness Uncoded 07/09/13 14:31 of Breath peppers Allergy Shortness Uncoded 07/09/13 14:31 of Breath Home Medications Medication Instructions Recorded Confirmed Last Taken Type Levothyroxine [Synthroid] 88 mcg PO QAM 04/23/13 08/08/18 08/08/18 History amLODIPine [Norvasc] 5 mg PO DAILY 01/31/15 08/08/18 08/08/18 History hydroCHLOROthiazide [HCTZ] 25 mg PO QDAY 01/31/15 08/08/18 08/08/18 History ALPRAZolam 0.25 mg PO BID 08/09/18 08/09/18 Unknown History Aspirin 81 mg PO DAILY 08/09/18 08/09/18 Unknown History Atorvastatin Calcium 40 mg PO DAILY 08/09/18 08/09/18 Unknown History Benefiber Healthy Shape 1 PO DAILY 08/09/18 Unknown History Clonidine HCl 0.3 mg PO TID 08/09/18 08/09/18 Unknown History Glimepiride 2 mg PO BID 08/09/18 08/09/18 Unknown History Levothyroxine Sodium 25 mcg PO DAILY 08/09/18 08/09/18 Unknown History Linzess 145 mg PO DAILY 08/09/18 08/09/18 Unknown History Pantoprazole Sodium 40 mg PO DAILY 08/09/18 08/09/18 Unknown History Welchol 625 mg PO BID 08/09/18 08/09/18 Unknown History metFORMIN 1,000 mg PO BID 08/09/18 08/09/18 Unknown History oxyCODONE /ACETAMINOPHEN 5 - 325 mg PO DAILY 08/09/18 08/09/18 Unknown History Active Meds: Active Medications Acetaminophen (Tylenol) 650 mg PO Q4H PRN PRN Reason: Pain MILD(1-3)/Fever >100.5/MONTEZ Alprazolam (Xanax) 0.25 mg PO BID [facility] Amlodipine Besylate (Amlodipine) 5 mg PO DAILY [facility] Aspirin (Baby Aspirin) 81 mg PO QDAY [facility] Atorvastatin Calcium (Lipitor) 40 mg PO QHS [facility] Clonidine HCl (Catapres) 0.1 mg PO DAILY PRN PRN Reason: Hypertension Dextrose (D50w (25gm) Syringe) 50 ml IV Q30MIN PRN; Protocol PRN Reason: Hypoglycemia Gabapentin (Gabapentin) 600 mg PO QHS [facility] Insulin Human Lispro (Humalog) 0 unit SUB-Q [facility]; Protocol Levothyroxine Sodium (Synthroid) 25 mcg PO DAILY@0600 [facility] Morphine Sulfate (Morphine) 2 mg IV Q4H PRN PRN Reason: Pain, Moderate (4-6) Last Admin: 05/01/19 12:13 Dose: 2 mg Documented by: Naloxone HCl (Naloxone) 0.1 mg IV Q2MIN PRN PRN Reason: Res Rate </= 8 or 02 SAT < 92% Ondansetron HCl (Zofran) 4 mg IV Q8H PRN PRN Reason: Nausea And Vomiting Oxycodone/Acetaminophen (Percocet 5/325) 1 tab PO Q6H PRN PRN Reason: Pain, Moderate (4-6) Pantoprazole Sodium (Protonix) 40 mg PO DAILY [facility] Sodium Chloride (Sodium Chloride Flush Syringe 10 Ml) 10 ml IV BID [facility] Sodium Chloride (Sodium Chloride Flush Syringe 10 Ml) 10 ml IV PRN PRN PRN Reason: LINE FLUSH Review of Systems Constitutional: no weight loss, no weight gain, no fever Ears, nose, mouth and throat: deferred Breasts: deferred Cardiovascular: no chest pain, no orthopnea, no palpitations, no edema, no syncope Respiratory: no cough with sputum, no hemoptysis Gastrointestinal: no abdominal pain, no nausea, no vomiting Genitourinary Female: no pelvic pain, no flank pain Rectal: no pain, no incontinence Musculoskeletal: no neck stiffness, no neck pain Integumentary: no rash, no pruritis Physical Examination Vital Signs Temp Pulse Resp BP Pulse Ox 98.0 F 65 22 141/102 100 05/01/19 08:00 05/01/19 08:00 05/01/19 08:00 05/01/19 08:00 05/01/19 08:00 General appearance: no acute distress HEENT: Positive: PERRL Neck: Positive: neck supple, trachea midline Cardiac: Positive: Reg Rate and Rhythm Lungs: Positive: Normal Exam, clear to auscultation, Normal Breath Sounds Neuro: Positive: Grossly Intact, Cranial Nerve 2-12 Intact Abdomen: Positive: Soft, Active Bowel Sounds Skin: Negative: Rash Extremities: Present: warm. Absent: edema Results 05/01/19 09:00 05/01/19 09:00 Cardiac Enzymes 05/01/19 Range/Units 09:00 AST 22 (5-40) units/L CBC 05/01/19 Range/Units 09:00 WBC 4.7 (4.5-11.0) K/mm3 RBC 4.06 (3.65-5.03) M/mm3 Hgb 12.2 (10.1-14.3) gm/dl Hct 36.5 (30.3-42.9) % Plt Count 379 (140-440) K/mm3 Lymph # 1.7 (1.2-5.4) K/mm3 [place] # 0.3 (0.0-0.8) K/mm3 Eos # 0.1 (0.0-0.4) K/mm3 Baso # 0.0 (0.0-0.1) K/mm3 Comprehensive Metabolic Panel 05/01/19 Range/Units 09:00 Sodium 139 (137-145) mmol/L Potassium 4.4 (3.6-5.0) mmol/L Chloride 100.2 (98-107) mmol/L Carbon Dioxide 22 (22-30) mmol/L BUN 10 (7-17) mg/dL Creatinine 0.7 (0.7-1.2) mg/dL Glucose 168 H (65-100) mg/dL Calcium 11.1 H (8.4-10.2) mg/dL AST 22 (5-40) units/L ALT 13 (7-56) units/L Alkaline Phosphatase 68 (35-129) units/L Total Protein 7.9 (6.3-8.2) g/dL Albumin 4.6 (3.9-5) g/dL - Imaging and Cardiology Stress echo: report reviewed (MPI 03/16/2019: no ischemia or infarction, EF 74%) Echo: report reviewed (10/19: EF 63%, ) EKG interpretations - Telemetry EKG Rhythm: Sinus Rhythm Assessment and Plan 58-year-old female Multiple medical problems Bipolar disorder/anxiety Hypertension Paroxysmal atrial fibrillation Hyperlipidemia Diabetes Recurrent breast cancer/Bilateral mastectomy Reports cerebral aneurysm however cerebral angiogram/2018 (no angiographic evidence of intracranial aneurysm and a 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 Her EKG shows no acute changes. First set of enzymes are negative. Continue to monitor her overnight closely. Not recommending any studies at this time. Myocardial perfusion scan 03/16/2019: No evidence of ischemia/myocardial infarction, EF 74% Echocardiogram 10/07/2019: EF 63%, grade 1 diastolic dysfunction
[2019-05-01] MEDS: INSULIN LISPRO 100 UNIT/ML SUB-Q SCH ×2 (16:50→21:45)
[2019-05-01] MEDS: oxyCODONE /ACETAMINOPHEN 5-325MG TAB PO PRN (17:32)
[2019-05-01] MEDS: ALPRAZolam 0.25 MG TAB PO SCH (21:44)
[2019-05-01] MEDS ORDERED: GABAPENTIN 300 MG CAP PO SCH (22:00)
[2019-05-01] MEDS ORDERED: COLESEVELAM 625 MG TAB PO SCH (22:00)
[2019-05-01] MEDS ORDERED: WELCHOL 625 MG PO SCH (22:00)
[2019-05-02] MEDS ORDERED: LEVOTHYROXINE 88 MCG TAB PO SCH ×2 (06:00→10:00)
[2019-05-02] MEDS ORDERED: LEVOTHYROXINE 25 MCG TAB PO SCH (06:00)
[2019-05-02] MEDS: oxyCODONE /ACETAMINOPHEN 5-325MG TAB PO PRN (06:15)
[2019-05-02 06:50] LABS: Hematocrit 35.5 % (30.3-42.9); Hemoglobin 11.7 gm/dl (10.1-14.3); Mean Corpuscular HGB Conc 33 % (30-34); Mean Corpuscular Volume 91 fl (79-97); Platelet Count 344 K/mm3 (140-440); Red Blood Count 3.91 M/mm3 (3.65-5.03); Red Cell Distribution Width 15.1 % (13.2-15.2)
[2019-05-02 07:06] LABS: BUN/Creatinine Ratio 13; Blood Urea Nitrogen 10 mg/dL (7-17); Calcium 10.7 mg/dL (8.4-10.2); Hemolysis Index 2
[2019-05-02 08:01] VITALS: BP 120/91
[2019-05-02] MEDS: INSULIN LISPRO 100 UNIT/ML SUB-Q SCH (08:16)
[2019-05-02 09:27] LABS: Total Cells Counted 100
[2019-05-02 09:28] LABS: Basophils % (Manual) 0 % (0.0-1.8); Platelet Estimate Consistent w Auto; RBC Morphology Normal
[2019-05-02] MEDS ORDERED: CYCLOBENZAPRINE 10 MG TAB PO PRN (09:35)
--- NOTE | 2019-05-02 09:49 | Discharge Summary ---
Providers - Providers Date of Admission: 05/01/19 10:14 Attending physician: WESTON BEGUM MD 05/01/19 Consult to Cardiac Rehabilitation [CONS] Routine Reason For Exam: Phase I 05/01/19 11:13 Consult to Physician [CONS] Routine Comment: Consulting Provider: RAYNE NORTON Physician Instructions: Reason For Exam: chest pain, afib 05/01/19 18:16 Consult to Mental Health [CONS] Routine Reason For Exam: depression Primary care physician: MARY PEREZ Hospitalization Condition: Stable Hospital course: ulcers in oral and vaginal area- states she gets better with steroids. feels she has muscle spasm Disposition: DC- TO HOME OR SELFCARE Time spent for discharge: 35 mins Exam - Constitutional Vitals: Temp Pulse Resp BP Pulse Ox 98.0 F 74 18 120/91 99 05/02/19 07:22 05/02/19 07:22 05/02/19 07:22 05/02/19 07:22 05/02/19 09:09 Plan Activity: advance as tolerated, fall precautions Diet: low fat Special Instructions: record daily weights, record daily BP diary Follow up with: MARY PEREZ MD [Primary Care Provider] - 3-5 Days MONIE ERICKSON MD [Staff Physician] - 7 Days Prescriptions: Cyclobenzaprine [Flexeril 10 MG TAB] 5 mg PO QHS PRN #14 tablet PRN Reason: Muscle Spasm predniSONE [Deltasone] 10 mg PO QDAY #5 tablet
[2019-05-02] MEDS ORDERED: predniSONE 10 MG TAB PO SCH (10:00)
[2019-05-02] MEDS ORDERED: LINZESS 145 MG PO SCH (10:00)
[2019-05-02] MEDS ORDERED: amLODIPine 5 MG TAB PO SCH (10:00)
[2019-05-02] MEDS ORDERED: PANTOPRAZOLE SODIUM 40 MG PO SCH (10:00)
[2019-05-02] MEDS ORDERED: LEVOTHYROXINE SODIUM 25 MCG PO SCH (10:00)
[2019-05-02] MEDS ORDERED: ASPIRIN 81 MG TAB CHEW PO SCH (10:00)
[2019-05-02] MEDS ORDERED: hydroCHLOROthiazide 25 MG TAB PO SCH (10:00)
[2019-05-02] MEDS ORDERED: PANTOPRAZOLE 40 MG TAB PO SCH (10:00)
[2019-05-02] MEDS: ALPRAZolam 0.25 MG TAB PO SCH (10:29)
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
[2019-05-02] MEDS ORDERED: MAGIC MOUTHWASH 30ML PO SCH (14:00)
[2019-05-02] MEDS ORDERED: traZODone 50 MG TAB PO SCH (22:00)
[2019-05-03] MEDS ORDERED: FLUoxetine 10 MG TAB PO SCH (10:00)
== END 2019-05-02 14:00 | disposition home or self-care (01) ==
LOC: ED 07:57 → 4A 10:14 → INTOOBSV 10:14
PROVIDERS: ADMIT Internal Medicine; ATTEND Internal Medicine
DX: R07.89 Other chest pain (principal); I48.0 Paroxysmal atrial fibrillation; F32.9 Major depressive disorder, single episode, unspecified; M45.9 Ankylosing spondylitis of unspecified sites in spine; I67.1 Cerebral aneurysm, nonruptured; K59.00 Constipation, unspecified; G25.81 Restless legs syndrome; E11.40 Type 2 diabetes mellitus with diabetic neuropathy, unspecified; G47.00 Insomnia, unspecified; F31.9 Bipolar disorder, unspecified; F41.9 Anxiety disorder, unspecified; E78.5 Hyperlipidemia, unspecified; G43.909 Migraine, unspecified, not intractable, without status migrainosus; Z85.3 Personal history of malignant neoplasm of breast; Z90.13 Acquired absence of bilateral breasts and nipples; I10 Essential (primary) hypertension; K21.9 Gastro-esophageal reflux disease without esophagitis; E03.9 Hypothyroidism, unspecified; Z79.01 Long term (current) use of anticoagulants; Z79.52 Long term (current) use of systemic steroids; Z79.899 Other long term (current) drug therapy; Z79.84 Long term (current) use of oral hypoglycemic drugs; Z91.040 Latex allergy status; Z91.018 Allergy to other foods
CPT/HCPCS: 36415; 71046; 80048; 80053; 82962; 84439; 84443; 84484; 85007; 85025; 87116; 93005; 93010; 94760; 96374; 96375; 96376; 99285; A9270; G0378; J2270; J2405; J7512

== ENCOUNTER 2019-06-11 17:44 | Emergency (ER) | payer MEDICARE ==
--- NOTE | 2019-06-11 17:59 | Emergency Department Report ---
ED Seizure HPI - General Stated Complaint: SEIZURE Time Seen by Provider: 06/11/19 17:53 Source: patient, EMS, old records reviewed Mode of arrival: Ambulatory Limitations: No Limitations - History of Present Illness Initial Comments: This is a 59-year-old female who presents after seizure. This patient has a history of Behcet's disease, seizure disorder, dyslipidemia, hypertension, diabetes mellitus, hypothyroidism, bipolar disorder. She is currently a patient at [facility]. She received 2 mg Ativan IM prior to EMS arrival. She has had seizures since 1984. She is followed closely by her PCP Dr. Mary Perez. She only takes antiepileptic medicine intermittently. In the past antiepileptic medicine has caused complication related to Behcet's disease. Currently she has mild diffuse back pain after falling due to seizure. According to electronic medical record in May she was discharged for evaluation chest pain new onset atrial fibrillation. She is currently taking Eliquis. MD Complaint: seizure -: Sudden, This evening Description of Episode: loss of consciousness Witnessed:: Yes Trauma: No Seizure History: known seizure disorder Place: other ([facility]) Possible Precipitating Event: none Associated Symptoms: other (Back pain) - Related Data Home Medications Medication Instructions Recorded Confirmed Last Taken Linzess 290 mg PO DAILY 08/09/18 05/01/19 Unknown ALPRAZolam [Xanax TAB] 0.25 mg PO BID 05/01/19 05/01/19 Unknown Apixaban [Eliquis] 5 mg PO DAILY 05/01/19 05/01/19 Unknown Atorvastatin Calcium [Lipitor] 40 mg PO HS 05/01/19 05/01/19 Unknown Gabapentin 300 mg PO HS 05/01/19 05/01/19 Unknown Levothyroxine [Synthroid] 25 mcg PO DAILY 05/01/19 05/01/19 Unknown Lidocaine [Lidoderm] 5 each TP DAILY 05/01/19 05/01/19 Unknown Metformin HCl [metFORMIN] 1,000 mg PO BID 05/01/19 05/01/19 Unknown Spironolactone [Aldactone] 25 mg PO QDAY 05/01/19 05/01/19 Unknown carvediloL [Coreg] 25 mg PO DAILY 05/01/19 05/01/19 Unknown oxyCODONE /ACETAMINOPHEN [Percocet 325 mg PO PRN PRN 05/01/19 05/01/19 Unknown 5/325 mg] Previous Rx's Medication Instructions Recorded Last Taken Type ALPRAZolam [Xanax TAB] 0.25 mg PO BID tablet 05/02/19 Unknown Rx Aspirin [Aspirin BABY CHEW TAB] 81 mg PO QDAY tab.chew 05/02/19 Unknown Rx AtorvaSTATin [Lipitor] 40 mg PO QHS tablet 05/02/19 Unknown Rx Cyclobenzaprine [Flexeril 10 MG 5 mg PO QHS PRN #14 tablet 05/02/19 Unknown Rx TAB] FLUoxetine [PROzac] 10 mg PO QDAY #30 tablet 05/02/19 Unknown Rx amLODIPine 5 mg PO DAILY #1 tablet 05/02/19 Unknown Rx cloNIDine [Catapres] 0.1 mg PO DAILY PRN tablet 05/02/19 Unknown Rx predniSONE [Deltasone] 10 mg PO QDAY #5 tablet 05/02/19 Unknown Rx traZODone [Desyrel] 50 mg PO QHS #30 tablet 05/02/19 Unknown Rx Allergies Allergy/AdvReac Type Severity Reaction Status Date / Time Latex, Natural Rubber Allergy dissolves Verified 07/19/13 11:38 skin figs Allergy Shortness Uncoded 07/09/13 14:31 of Breath lettuce Allergy Shortness Uncoded 07/09/13 14:31 of Breath onion Allergy Shortness Uncoded 07/09/13 14:31 of Breath peppers Allergy Shortness Uncoded 07/09/13 14:31 of Breath ED Review of Systems ROS: Stated complaint: SEIZURE Other details as noted in HPI Comment: All other systems reviewed and negative Constitutional: denies: fever, malaise Respiratory: denies: cough Cardiovascular: denies: chest pain Gastrointestinal: denies: abdominal pain, nausea, vomiting Neurological: denies: headache ED Past Medical Hx - Past Medical History Previous Medical History?: Yes Hx Hypertension: Yes (since 2002 Lisinopril) Hx Heart Attack/AMI: No Hx Congestive Heart Failure: No Hx Diabetes: Yes Hx Liver Disease: No Hx Arthritis: Yes (spine) Hx Headaches / Migraines: Yes (migraines) Hx Seizures: Yes (with ) Hx Asthma: Yes (childhood) Hx COPD: No Hx HIV: No Additional medical history: hypothyroid, Zambrano's palsy, breast cancer, Afib - Surgical History Hx Breast Surgery: Yes (andrés mastectomy) Additional Surgical History: bilat mastectomy. left knee sx. left eye tumor - Social History Smoking Status: Former Smoker - Medications Home Medications: Home Medications Medication Instructions Recorded Confirmed Last Taken Type Linzess 290 mg PO DAILY 08/09/18 05/01/19 Unknown History ALPRAZolam [Xanax TAB] 0.25 mg PO BID 05/01/19 05/01/19 Unknown History Apixaban [Eliquis] 5 mg PO DAILY 05/01/19 05/01/19 Unknown History Atorvastatin Calcium [Lipitor] 40 mg PO HS 05/01/19 05/01/19 Unknown History Gabapentin 300 mg PO HS 05/01/19 05/01/19 Unknown History Levothyroxine [Synthroid] 25 mcg PO DAILY 05/01/19 05/01/19 Unknown History Lidocaine [Lidoderm] 5 each TP DAILY 05/01/19 05/01/19 Unknown History Metformin HCl [metFORMIN] 1,000 mg PO BID 05/01/19 05/01/19 Unknown History Spironolactone [Aldactone] 25 mg PO QDAY 05/01/19 05/01/19 Unknown History carvediloL [Coreg] 25 mg PO DAILY 05/01/19 05/01/19 Unknown History oxyCODONE /ACETAMINOPHEN [Percocet 325 mg PO PRN PRN 05/01/19 05/01/19 Unknown History 5/325 mg] ALPRAZolam [Xanax TAB] 0.25 mg PO BID tablet 05/02/19 Unknown Rx Aspirin [Aspirin BABY CHEW TAB] 81 mg PO QDAY tab.chew 05/02/19 Unknown Rx AtorvaSTATin [Lipitor] 40 mg PO QHS tablet 05/02/19 Unknown Rx Cyclobenzaprine [Flexeril 10 MG 5 mg PO QHS PRN #14 tablet 05/02/19 Unknown Rx TAB] FLUoxetine [PROzac] 10 mg PO QDAY #30 tablet 05/02/19 Unknown Rx amLODIPine 5 mg PO DAILY #1 tablet 05/02/19 Unknown Rx cloNIDine [Catapres] 0.1 mg PO DAILY PRN tablet 05/02/19 Unknown Rx predniSONE [Deltasone] 10 mg PO QDAY #5 tablet 05/02/19 Unknown Rx traZODone [Desyrel] 50 mg PO QHS #30 tablet 05/02/19 Unknown Rx ED Physical Exam - General Limitations: No Limitations General appearance: alert, in no apparent distress - Head Head exam: Present: atraumatic, normocephalic - Eye Eye exam: Present: normal appearance - ENT ENT exam: Present: mucous membranes moist - Neck Neck exam: Present: normal inspection, full ROM - Respiratory Respiratory exam: Present: normal lung sounds bilaterally. Absent: respiratory distress, wheezes, rales, rhonchi - Cardiovascular Cardiovascular Exam: Present: regular rate, normal rhythm, normal heart sounds. Absent: systolic murmur, diastolic murmur, rubs, gallop - GI/Abdominal GI/Abdominal exam: Present: soft, normal bowel sounds. Absent: distended, tenderness, guarding, rebound - Extremities Exam Extremities exam: Present: normal inspection - Neurological Exam Neurological exam: Present: alert, oriented X3 - Expanded Neurological Exam Expanded Patient oriented to: Present: person, place, time Speech: Present: fluid speech Cranial nerves: EOM's Intact: Normal Upper motor neuron: [place] Neglect: Normal Sensory exam: Upper Extremity Light Touch: Normal Motor strength exam: RUE: 5, LUE: 5, RLE: 5, LLE: 5 Best Eye Response ([place]): (4) open spontaneously Best Motor Response ([place]): (6) obeys commands Best Verbal Response (Boy): (5) oriented Boy Total: 15 - Psychiatric Psychiatric exam: Present: normal affect, normal mood - Skin Skin exam: Present: warm, dry, intact, normal color. Absent: rash ED Course Vital Signs 06/11/19 06/11/19 06/11/19 17:51 18:02 18:04 Temperature 98.1 F Pulse Rate 98 H Respiratory 16 16 Rate Blood Pressure 162/116 O2 Sat by Pulse 98 98 98 Oximetry 06/11/19 06/11/19 06/11/19 18:15 18:45 19:00 Temperature Pulse Rate Respiratory Rate Blood Pressure 135/84 135/99 121/101 O2 Sat by Pulse 100 100 97 Oximetry 06/11/19 19:16 Temperature Pulse Rate Respiratory Rate Blood Pressure 146/98 O2 Sat by Pulse Oximetry ED Medical Decision Making - Lab Data Result diagrams: 06/11/19 18:18 06/11/19 18:18 - Radiology Data Radiology results: report reviewed 3 views of the left shoulder: No fracture or dislocation according to radiology impression - Medical Decision Making Mrs. Carney presents with seizure. Hx of seizure since 1984. Keppra load giv en in ED. cbc wnl. Mild acidosis with anion gap likely due to lactic acidosis due to seizure or volume contraction. On reexamination, patient has left shoulder pain pain on active motion. Left shoulder radiographs obtained without evidence of acute bony injury such as dislocation or fracture, sling provided. Critical care attestation.: If time is entered above; I have spent that time in minutes in the direct care of this critically ill patient, excluding procedure time. ED Disposition Clinical Impression: Seizure, Left shoulder pain Disposition: DC/TX-70 ANOTHER TYPE HLTHCARE Is pt being admited?: No Does the pt Need Aspirin: No Condition: Stable Instructions: Recurrent Seizures Adult (ED) Referrals: MARY PEREZ MD [Staff Physician] - 3-5 Days
[2019-06-11] MEDS ORDERED: levETIRAcetam 1000 MG/NS 0.75% 1,000 MG/100 ML BAG IV ONE (18:11)
[2019-06-11 18:33] LABS: Basophils # (Auto) 0.1 K/mm3 (0.0-0.1); Basophils % (Auto) 1.1 % (0.0-1.8); Eosinophils # (Auto) 0.2 K/mm3 (0.0-0.4); Hemoglobin 11.2 gm/dl (10.1-14.3); Lymphocytes # (Auto) 2.2 K/mm3 (1.2-5.4); Lymphocytes % (Auto) 33.6 % (13.4-35.0); Mean Corpuscular HGB Conc 32 % (30-34); Mean Corpuscular Volume 94 fl (79-97); Monocytes # (Auto) 0.5 K/mm3 (0.0-0.8); Platelet Count 279 K/mm3 (140-440); Red Blood Count 3.73 M/mm3 (3.65-5.03); Red Cell Distribution Width 14.8 % (13.2-15.2)
[2019-06-11 18:47] LABS: Alanine Aminotransferase 16 units/L (7-56); Albumin 4.2 g/dL (3.9-5); BUN/Creatinine Ratio 17; Blood Urea Nitrogen 15 mg/dL (7-17); Calcium 9.9 mg/dL (8.4-10.2); Hemolysis Index 14
[2019-06-11 19:22] VITALS: BP 146/98
[2019-06-11] MEDS ORDERED: IBUPROFEN 800 MG TAB PO ONE (19:30)
--- NOTE | 2019-06-11 20:31 | XRay Report ---
Left shoulder, 3 views INDICATION: Pain following fall tonight FINDINGS: The joint space is maintained. There is no fracture or dislocation. No spurring or arthriti c change. No bone lesion or periostitis. No significant abnormality. IMPRESSION: Negative study Signer Name: Jefferson Israel MD Signed: 06/11/2019 8:26 PM Workstation Name: [id number]
== END 2019-06-11 21:00 | disposition other institution (70) ==
LOC: ED 17:44
DX: G40.909 Epilepsy, unspecified, not intractable, without status epilepticus (principal); M25.512 Pain in left shoulder; E78.5 Hyperlipidemia, unspecified; I10 Essential (primary) hypertension; I48.91 Unspecified atrial fibrillation; G43.909 Migraine, unspecified, not intractable, without status migrainosus; M19.90 Unspecified osteoarthritis, unspecified site; J45.909 Unspecified asthma, uncomplicated; E03.9 Hypothyroidism, unspecified; E11.9 Type 2 diabetes mellitus without complications; F31.9 Bipolar disorder, unspecified; Z91.040 Latex allergy status; Z91.048 Other nonmedicinal substance allergy status; Z85.3 Personal history of malignant neoplasm of breast; Z98.890 Other specified postprocedural states; Z79.899 Other long term (current) drug therapy; Z91.018 Allergy to other foods; Z87.891 Personal history of nicotine dependence
CPT/HCPCS: 36415; 73030; 80053; 85025; 96365; 99285; J1953

== ENCOUNTER 2019-07-24 14:19 | Emergency (ER) | payer MEDICARE, MEDICAID ==
[2019-07-24] MEDS ORDERED: SODIUM CHLORIDE 0.9% 1000 ML 1,000 ML IV ONE ×3 (15:05→17:34)
[2019-07-24] MEDS ORDERED: KETOROLAC 30 MG/1 ML INJ IV ONE (15:06)
[2019-07-24 15:47] LABS: Basophils % (Auto) 0.1 % (0.0-1.8); Hematocrit 35.3 % (30.3-42.9); Hemoglobin 11.4 gm/dl (10.1-14.3); Lymphocytes # (Auto) 1.3 K/mm3 (1.2-5.4); Lymphocytes % (Auto) 11.4 % (13.4-35.0); Mean Corpuscular HGB Conc 32 % (30-34); Mean Corpuscular Volume 91 fl (79-97); Monocytes # (Auto) 0.1 K/mm3 (0.0-0.8); Monocytes % (Auto) 1.1 % (0.0-7.3); Platelet Count 335 K/mm3 (140-440); Red Blood Count 3.88 M/mm3 (3.65-5.03); Red Cell Distribution Width 14.7 % (13.2-15.2)
[2019-07-24] MEDS ORDERED: INSULIN REGULAR, HUMAN 100 UNITS/1 ML IV ONE (15:55)
[2019-07-24] MEDS ORDERED: ONDANSETRON 4 MG/2 ML INJ IV ONE ×2 (16:30→18:33)
[2019-07-24 16:31] LABS: BUN/Creatinine Ratio 20; Blood Urea Nitrogen 20 mg/dL (7-17); Calcium 10.5 mg/dL (8.4-10.2); Hemolysis Index 39
[2019-07-24] MEDS ORDERED: ONDANSETRON 4 MG/2 ML INJ ONE (16:32)
[2019-07-24] MEDS ORDERED: MORPHINE 4 MG/1 ML INJ IV ONE (17:00)
[2019-07-24 18:44] LABS: Bilirubin,Urine NEG (Negative); Blood,Urine NEG (Negative); Color,Urine Yellow (Yellow); Mucus,Urine FEW /HPF; Protein,Urine <15 mg/dL mg/dL (Negative); Urobilinogen,Urine < 2.0 mg/dL (<2.0); WBC,Urine < 1.0 /HPF (0.0-6.0)
[2019-07-24] MEDS ORDERED: HYDROcodone/ACETAMINOPHEN 5-325 MG TAB PO ONE (19:04)
--- NOTE | 2019-07-24 19:14 | Emergency Department Report ---
ED General Adult HPI - General Chief complaint: Hyperglycemia Stated complaint: BLOOD SUGAR Time Seen by Provider: 07/24/19 14:48 Source: patient, EMS Mode of arrival: Ambulatory Limitations: No Limitations - History of Present Illness Initial comments: Patient is a 59-year-old F Haitian female who is presenting with concerns about elevated blood glucose. Patient states she is currently on a prednisone taper. Patient states that she had a flareup of her Behcet's disease and has sores in her mouth nose as well as pain throughout her body. Patient does have a history of diabetes and hypertension and states that she has since she is on day 2 of h er prednisone taper her blood glucoses elevated. States she has some mild nausea but denies vomiting. Patient states there is no diarrhea abdominal pain cough cold or congestion. She does state that she has had urinary frequency and her blood glucose was 500 prior to arrival. Patient states she is compliant with her metformin and takes 1000 mg twice a day Severity scale (0 -10): 6 - Related Data Home Medications Medication Instructions Recorded Confirmed Last Taken Linzess 290 mg PO DAILY 08/09/18 05/01/19 Unknown ALPRAZolam [Xanax TAB] 0.25 mg PO BID 05/01/19 05/01/19 Unknown Apixaban [Eliquis] 5 mg PO DAILY 05/01/19 05/01/19 Unknown Atorvastatin Calcium [Lipitor] 40 mg PO HS 05/01/19 05/01/19 Unknown Gabapentin 300 mg PO HS 05/01/19 05/01/19 Unknown Levothyroxine [Synthroid] 25 mcg PO DAILY 05/01/19 05/01/19 Unknown Lidocaine [Lidoderm] 5 each TP DAILY 05/01/19 05/01/19 Unknown Metformin HCl [metFORMIN] 1,000 mg PO BID 05/01/19 05/01/19 Unknown Spironolactone [Aldactone] 25 mg PO QDAY 05/01/19 05/01/19 Unknown carvediloL [Coreg] 25 mg PO DAILY 05/01/19 05/01/19 Unknown oxyCODONE /ACETAMINOPHEN [Percocet 325 mg PO PRN PRN 05/01/19 05/01/19 Unknown 5/325 mg] Previous Rx's Medication Instructions Recorded Last Taken Type ALPRAZolam [Xanax TAB] 0.25 mg PO BID tablet 05/02/19 Unknown Rx Aspirin [Aspirin BABY CHEW TAB] 81 mg PO QDAY tab.chew 05/02/19 Unknown Rx AtorvaSTATin [Lipitor] 40 mg PO QHS tablet 05/02/19 Unknown Rx Cyclobenzaprine [Flexeril 10 MG 5 mg PO QHS PRN #14 tablet 05/02/19 Unknown Rx TAB] FLUoxetine [PROzac] 10 mg PO QDAY #30 tablet 05/02/19 Unknown Rx amLODIPine 5 mg PO DAILY #1 tablet 05/02/19 Unknown Rx cloNIDine [Catapres] 0.1 mg PO DAILY PRN tablet 05/02/19 Unknown Rx predniSONE [Deltasone] 10 mg PO QDAY #5 tablet 05/02/19 Unknown Rx traZODone [Desyrel] 50 mg PO QHS #30 tablet 05/02/19 Unknown Rx glyBURIDE [Diabeta] 2.5 mg PO BID #10 tablet 07/24/19 Unknown Rx Allergies Allergy/AdvReac Type Severity Reaction Status Date / Time Latex, Natural Rubber Allergy dissolves Verified 07/19/13 11:38 skin figs Allergy Shortness Uncoded 07/09/13 14:31 of Breath lettuce Allergy Shortness Uncoded 07/09/13 14:31 of Breath onion Allergy Shortness Uncoded 07/09/13 14:31 of Breath peppers Allergy Shortness Uncoded 07/09/13 14:31 of Breath ED Review of Systems ROS: Stated complaint: BLOOD SUGAR Other details as noted in HPI Comment: All other systems reviewed and negative ED Past Medical Hx - Past Medical History Previous Medical History?: Yes Hx Hypertension: Yes (since 2002 Lisinopril) Hx CVA: Yes (x 3) Hx Heart Attack/AMI: No Hx Congestive Heart Failure: No Hx Diabetes: Yes Hx Liver Disease: No Hx of Cancer: Yes (Bilateral breast and Ovarian) Hx Arthritis: Yes (spine) Hx Headaches / Migraines: Yes (migraines) Hx Seizures: Yes (with ) Hx Psychiatric Treatment: Yes (Depression, SI 05/10) Hx Asthma: Yes (childhood) Hx COPD: No Hx HIV: No Additional medical history: Behrets syndrome, hypothyroid, Zambrano's palsy, breast cancer, Afib - Surgical History Past Surgical History?: Yes Hx Breast Surgery: Yes (andrés mastectomy) Additional Surgical History: bilat mastectomy. left knee sx. left eye tumor - Social History Smoking Status: Never Smoker Substance Use Type: None - Medications Home Medications: Home Medications Medication Instructions Recorded Confirmed Last Taken Type Linzess 290 mg PO DAILY 08/09/18 05/01/19 Unknown History ALPRAZolam [Xanax TAB] 0.25 mg PO BID 05/01/19 05/01/19 Unknown History Apixaban [Eliquis] 5 mg PO DAILY 05/01/19 05/01/19 Unknown History Atorvastatin Calcium [Lipitor] 40 mg PO HS 05/01/19 05/01/19 Unknown History Gabapentin 300 mg PO HS 05/01/19 05/01/19 Unknown History Levothyroxine [Synthroid] 25 mcg PO DAILY 05/01/19 05/01/19 Unknown History Lidocaine [Lidoderm] 5 each TP DAILY 05/01/19 05/01/19 Unknown History Metformin HCl [metFORMIN] 1,000 mg PO BID 05/01/19 05/01/19 Unknown History Spironolactone [Aldactone] 25 mg PO QDAY 05/01/19 05/01/19 Unknown History carvediloL [Coreg] 25 mg PO DAILY 05/01/19 05/01/19 Unknown History oxyCODONE /ACETAMINOPHEN [Percocet 325 mg PO PRN PRN 05/01/19 05/01/19 Unknown History 5/325 mg] ALPRAZolam [Xanax TAB] 0.25 mg PO BID tablet 05/02/19 Unknown Rx Aspirin [Aspirin BABY CHEW TAB] 81 mg PO QDAY tab.chew 05/02/19 Unknown Rx AtorvaSTATin [Lipitor] 40 mg PO QHS tablet 05/02/19 Unknown Rx Cyclobenzaprine [Flexeril 10 MG 5 mg PO QHS PRN #14 tablet 05/02/19 Unknown Rx TAB] FLUoxetine [PROzac] 10 mg PO QDAY #30 tablet 05/02/19 Unknown Rx amLODIPine 5 mg PO DAILY #1 tablet 05/02/19 Unknown Rx cloNIDine [Catapres] 0.1 mg PO DAILY PRN tablet 05/02/19 Unknown Rx predniSONE [Deltasone] 10 mg PO QDAY #5 tablet 05/02/19 Unknown Rx traZODone [Desyrel] 50 mg PO QHS #30 tablet 05/02/19 Unknown Rx glyBURIDE [Diabeta] 2.5 mg PO BID #10 tablet 07/24/19 Unknown Rx ED Physical Exam - General Limitations: No Limitations General appearance: alert, in no apparent distress - Head Head exam: Present: atraumatic, normocephalic - Eye Eye exam: Present: normal appearance, EOMI - ENT ENT exam: Present: mucous membranes moist - Neck Neck exam: Present: normal inspection - Respiratory Respiratory exam: Present: normal lung sounds bilaterally. Absent: respiratory distress, wheezes, rales, rhonchi, stridor - Cardiovascular Cardiovascular Exam: Present: regular rate, normal rhythm. Absent: systolic murmur, diastolic murmur, rubs, gallop - GI/Abdominal GI/Abdominal exam: Present: soft, distended, normal bowel sounds. Absent: tenderness, guarding, rebound - Extremities Exam Extremities exam: Present: normal inspection, other (No pitting edema) - Back Exam Back exam: Present: normal inspection - Neurological Exam Neurological exam: Present: alert, oriented X3 - Psychiatric Psychiatric exam: Present: normal affect, normal mood - Skin Skin exam: Present: warm, dry, intact, normal color. Absent: rash ED Course Vital Signs 07/24/19 07/24/19 07/24/19 15:00 15:01 15:30 Temperature 98.5 F Pulse Rate 93 H 89 85 Respiratory 19 18 12 Rate Blood Pressure 184/129 184/129 159/122 O2 Sat by Pulse Oximetry 07/24/19 07/24/19 07/24/19 16:00 16:30 17:00 Temperature Pulse Rate 80 86 88 Respiratory 14 22 17 Rate Blood Pressure 184/129 136/103 136/103 O2 Sat by Pulse Oximetry 07/24/19 07/24/19 07/24/19 17:30 18:00 18:30 Temperature Pulse Rate 90 88 Respiratory 16 12 Rate Blood Pressure 136/103 147/110 144/123 O2 Sat by Pulse 95 Oximetry 07/24/19 19:00 Temperature Pulse Rate Respiratory Rate Blood Pressure 113/77 O2 Sat by Pulse 98 Oximetry ED Medical Decision Making - Lab Data Result diagrams: 07/24/19 15:15 07/24/19 15:15 Lab Results 07/24/19 07/24/19 07/24/19 Range/Units 15:15 15:15 15:49 WBC 11.1 H (4.5-11.0) K/mm3 RBC 3.88 (3.65-5.03) M/mm3 Hgb 11.4 (10.1-14.3) gm/dl Hct 35.3 (30.3-42.9) % MCV 91 (79-97) fl MCH 29 (28-32) pg MCHC 32 (30-34) % RDW 14.7 (13.2-15.2) % Plt Count 335 (140-440) K/mm3 Lymph % (Auto) 11.4 L (13.4-35.0) % [place] % (Auto) 1.1 (0.0-7.3) % Eos % (Auto) 0.0 (0.0-4.3) % Baso % (Auto) 0.1 (0.0-1.8) % Lymph # 1.3 (1.2-5.4) K/mm3 [place] # 0.1 (0.0-0.8) K/mm3 Eos # 0.0 (0.0-0.4) K/mm3 Baso # 0.0 (0.0-0.1) K/mm3 Seg Neutrophils % 87.4 H (40.0-70.0) % Seg Neutrophils # 9.7 H (1.8-7.7) K/mm3 Sodium 133 L (137-145) mmol/L Potassium 4.9 (3.6-5.0) mmol/L Chloride 96.5 L (98-107) mmol/L Carbon Dioxide 18 L (22-30) mmol/L Anion Gap 23 mmol/L BUN 20 H (7-17) mg/dL Creatinine 1.0 (0.7-1.2) mg/dL Estimated GFR > 60 ml/min BUN/Creatinine Ratio 20 % Glucose 293 H (65-100) mg/dL POC Glucose 304 H (70-105) Calcium 10.5 H (8.4-10.2) mg/dL Urine Color (Yellow) Urine Turbidity (Clear) Urine pH (5.0-7.0) Ur Specific [place] (1.003-1.030) Urine Protein (Negative) mg/dL Urine Glucose (UA) (Negative) mg/dL Urine Ketones (Negative) mg/dL Urine Blood (Negative) Urine Nitrite (Negative) Urine Bilirubin (Negative) Urine Urobilinogen (<2.0) mg/dL Ur Leukocyte Esterase (Negative) Urine WBC (Auto) (0.0-6.0) /HPF Urine RBC (Auto) (0.0-6.0) /HPF U Epithel Cells (Auto) (0-13.0) /HPF Urine Mucus /HPF 07/24/19 07/24/19 Range/Units 18:34 19:01 WBC (4.5-11.0) K/mm3 RBC (3.65-5.03) M/mm3 Hgb (10.1-14.3) gm/dl Hct (30.3-42.9) % MCV (79-97) fl MCH (28-32) pg MCHC (30-34) % RDW (13.2-15.2) % Plt Count (140-440) K/mm3 Lymph % (Auto) (13.4-35.0) % [place] % (Auto) (0.0-7.3) % Eos % (Auto) (0.0-4.3) % Baso % (Auto) (0.0-1.8) % Lymph # (1.2-5.4) K/mm3 [place] # (0.0-0.8) K/mm3 Eos # (0.0-0.4) K/mm3 Baso # (0.0-0.1) K/mm3 Seg Neutrophils % (40.0-70.0) % Seg Neutrophils # (1.8-7.7) K/mm3 Sodium (137-145) mmol/L Potassium (3.6-5.0) mmol/L Chloride (98-107) mmol/L Carbon Dioxide (22-30) mmol/L Anion Gap mmol/L BUN (7-17) mg/dL Creatinine (0.7-1.2) mg/dL Estimated GFR ml/min BUN/Creatinine Ratio % Glucose (65-100) mg/dL POC Glucose 189 H (70-105) Calcium (8.4-10.2) mg/dL Urine Color Yellow (Yellow) Urine Turbidity Clear (Clear) Urine pH 6.0 (5.0-7.0) Ur Specific [place] 1.012 (1.003-1.030) Urine Protein <15 mg/dl (Negative) mg/dL Urine Glucose (UA) 50 (Negative) mg/dL Urine Ketones Neg (Negative) mg/dL Urine Blood Neg (Negative) Urine Nitrite Neg (Negative) Urine Bilirubin Neg (Negative) Urine Urobilinogen < 2.0 (<2.0) mg/dL Ur Leukocyte Esterase Neg (Negative) Urine WBC (Auto) < 1.0 (0.0-6.0) /HPF Urine RBC (Auto) 1.0 (0.0-6.0) /HPF U Epithel Cells (Auto) 1.0 (0-13.0) /HPF Urine Mucus Few /HPF Vital Signs 07/24/19 07/24/19 07/24/19 15:00 15:01 15:30 Temperature 98.5 F Pulse Rate 93 H 89 85 Respiratory 19 18 12 Rate Blood Pressure 184/129 184/129 159/122 O2 Sat by Pulse Oximetry 07/24/19 07/24/19 07/24/19 16:00 16:30 17:00 Temperature Pulse Rate 80 86 88 Respiratory 14 22 17 Rate Blood Pressure 184/129 136/103 136/103 O2 Sat by Pulse Oximetry 07/24/19 07/24/19 07/24/19 17:30 18:00 18:30 Temperature Pulse Rate 90 88 Respiratory 16 12 Rate Blood Pressure 136/103 147/110 144/123 O2 Sat by Pulse 95 Oximetry 07/24/19 19:00 Temperature Pulse Rate Respiratory Rate Blood Pressure 113/77 O2 Sat by Pulse 98 Oximetry - EKG Data -: EKG Interpreted by [place] EKG shows normal: sinus rhythm, axis, intervals, QRS complexes, ST-T waves Rate: normal - EKG Data Interpretation: LVH - Medical Decision Making Patient does have elevation of her glucose as well as evidence of some mild dehydration however her bicarb is not in a critical range. Patient does not show evidence of any severe acidosis. Patient be given 3 L of normal saline and was given 5 units of insulin. There is no ketones in her urine and the patient is not in DKA. Patient was concerned that after being stabilized she would end up in the same predicament that she is still on prednisone and has several days left on her regimen. Was able to contact the hospitalist who gave suggestion to place the patient on glyburide 2.5 mg twice a day until her prednisone is done. Patient contact contact her primary care physician to see if they want to continue with this medication after the prednisone has been discontinued. Patient after receiving IV fluids be stable for discharge. Critical care attestation.: If time is entered above; I have spent that time in minutes in the direct care of this critically ill patient, excluding procedure time. ED Disposition Clinical Impression: Hyperglycemia, Autoimmune disorder, Hypertensive urgency, Mild dehydration Disposition: DC-01 TO HOME OR SELFCARE Is pt being admited?: No Does the pt Need Aspirin: No Condition: Stable Instructions: Hypertension (ED), Diabetic Hyperglycemia (ED) Prescriptions: glyBURIDE [Diabeta] 2.5 mg PO BID #10 tablet Time of Disposition: 19:23
[2019-07-24] MEDS ORDERED: traMADol 50 MG TAB PO ONE (19:23)
[2019-07-24 20:43] VITALS: BP 145/98
== END 2019-07-24 21:20 | disposition home or self-care (01) ==
LOC: ED 14:19
DX: E11.65 Type 2 diabetes mellitus with hyperglycemia (principal); D89.89 Other specified disorders involving the immune mechanism, not elsewhere classified; E86.0 Dehydration; I16.0 Hypertensive urgency; M19.91 Primary osteoarthritis, unspecified site; G43.909 Migraine, unspecified, not intractable, without status migrainosus; R56.9 Unspecified convulsions; J45.909 Unspecified asthma, uncomplicated; F32.9 Major depressive disorder, single episode, unspecified; Z86.73 Personal history of transient ischemic attack (TIA), and cerebral infarction without residual deficits; Z85.3 Personal history of malignant neoplasm of breast; Z85.43 Personal history of malignant neoplasm of ovary; Z98.890 Other specified postprocedural states; Z79.84 Long term (current) use of oral hypoglycemic drugs; Z79.899 Other long term (current) drug therapy; Z91.040 Latex allergy status; Z91.018 Allergy to other foods; Z88.8 Allergy status to other drugs, medicaments and biological substances
CPT/HCPCS: 36415; 80048; 81001; 82962; 85025; 93005; 96361; 96374; 96375; 96376; 99284; J1885; J2270; J2405; J7030; J1815

== ENCOUNTER 2020-03-25 14:48 | Emergency (ER) | payer MEDICARE ==
--- NOTE | 2020-03-25 15:03 | Event Note ---
ED Screening Note Date of service: 03/25/20 Time: 15:01 ED Screening Note: Sudden onset of substernal ripping/tearing pain with SOB pain in left chest with inhalation hx of afib HR 130 This initial assessment/diagnostic orders/clinical plan/treatment(s) is/are subject to change based on patients health status, clinical progression and re- assessment by fellow clinical providers in the ED. Further treatment and workup at subsequent clinical providers discretion. Patient/guardian urged not to elope from the ED as their condition may be serious if not clinically assessed and managed. Initial orders include: Charge nurse notified immediately of need for bed labs ekg CXR
--- NOTE | 2020-03-25 15:24 | Event Note ---
Date: 03/25/20 The patient was evaluated in the emergency department for symptoms described in the history of present illness. He/she was evaluated in the context of the global COVID-19 pandemic, which necessitated consideration that the patient might be at risk for infection with the virus that causes COVID-19. Institutional protocols and algorithms that pertain to the evaluation of patients at risk for COVID-19 are in a state of rapid change based on information released by regulatory bodies including the CDC and federal and state organizations. These policies and algorithms were followed during the patient's care in the emergency department. Please note that these policies, procedures and recommendations changed on a rapid basis. I went in to evaluate the patient for her chest pain. The patient is a 59-year-old female, with a history of paroxysmal A. fib, on Eliquis, psychiatric history, negative cardiac stress test last year, resenting to the ER with left- sided chest pain, that moves down her left upper extremity. The patient specifically told me the pain did not radiate to the back. Blood pressure in the 140/150s. During the patient's history the patient told me that she did not want me to be her physician. I advised the patient that we would recommend emergent medical evaluation for potential time sensitive diagnoses, and delaying care could result in , disability, paralysis, permanent loss of quality of life. Patient is awake and alert, and exhibits decision-making capacity, but is refusing to allow me to care for her. Patient indicates she wants to be seen by another provider/physician.
[2020-03-25 16:00] LABS: Basophils % (Auto) 0.4 % (0.0-1.8); Eosinophils # (Auto) 0.1 K/mm3 (0.0-0.4); Eosinophils % (Auto) 1.2 % (0.0-4.3); Hematocrit 39.4 % (30.3-42.9); Lymphocytes # (Auto) 3.2 K/mm3 (1.2-5.4); Mean Corpuscular HGB Conc 33 % (30-34); Mean Corpuscular Volume 90 fl (79-97); Monocytes # (Auto) 0.4 K/mm3 (0.0-0.8); Monocytes % (Auto) 4.9 % (0.0-7.3); Platelet Count 391 K/mm3 (140-440); Red Blood Count 4.41 M/mm3 (3.65-5.03); Red Cell Distribution Width 16.9 % (13.2-15.2)
[2020-03-25 16:22] LABS: BUN/Creatinine Ratio 18; Blood Urea Nitrogen 14 mg/dL (7-17); Calcium 10.5 mg/dL (8.4-10.2); Hemolysis Index 28
[2020-03-25] MEDS ORDERED: fentaNYL 100 MCG/2 ML INJ IV ONE ×3 (16:22→17:59)
[2020-03-25] MEDS ORDERED: ONDANSETRON 4 MG/2 ML INJ IV ONE (16:22)
[2020-03-25] MEDS ORDERED: cloNIDine 0.2 MG TAB PO ONE (16:24)
[2020-03-25 16:25] LABS: Alanine Aminotransferase 19 units/L (7-56); Albumin 4.9 g/dL (3.9-5); Bilirubin,Direct < 0.2 mg/dL (0-0.2)
--- NOTE | 2020-03-25 16:27 | Emergency Department Report ---
HPI - General Chief Complaint: Chest Pain Time Seen by Provider: 03/25/20 14:59 - HPI HPI: Room 36 The patient is a 59-year-old female present with a chief complaint of left shoulder pain. The patient states she developed left shoulder pain yesterday. Patient denies recalling any specific injury but states her left shoulder is excruciating whenever she attempts to move it. Patient states his pain radiates to her left chest and back. Patient states it hurts to breathe as well. Of note the patient states she has had a tear in her rotator cuff approximately 4 months ago and went to rehab. The patient states family drove her to the emergency department and she is not driving ED Past Medical Hx - Past Medical History Previous Medical History?: Yes Hx Hypertension: Yes (since 2002 Lisinopril) Hx CVA: Yes (x 3) Hx Diabetes: Yes Hx Arthritis: Yes (spine) Hx Headaches / Migraines: Yes (migraines) Hx Seizures: Yes (with ) Hx Psychiatric Treatment: Yes (Depression, SI 05/10) Hx Asthma: Yes (childhood) Additional medical history: Bechets syndrome, hypothyroid, Zambrano's palsy, breast cancer, Afib - Surgical History Past Surgical History?: Yes Hx Breast Surgery: Yes (andrés mastectomy) Additional Surgical History: bilat mastectomy. left knee sx. left eye tumor - Social History Smoking Status: Never Smoker Substance Use Type: None - Medications Home Medications: Home Medications Medication Instructions Recorded Confirmed Last Taken Type Linzess 290 mg PO DAILY 08/09/18 05/01/19 Unknown History ALPRAZolam [Xanax TAB] 0.25 mg PO BID 05/01/19 05/01/19 Unknown History Apixaban [Eliquis] 5 mg PO DAILY 05/01/19 05/01/19 Unknown History Atorvastatin Calcium [Lipitor] 40 mg PO HS 05/01/19 05/01/19 Unknown History Gabapentin 300 mg PO HS 05/01/19 05/01/19 Unknown History Levothyroxine [Synthroid] 25 mcg PO DAILY 05/01/19 05/01/19 Unknown History Lidocaine [Lidoderm] 5 each TP DAILY 05/01/19 05/01/19 Unknown History Metformin HCl [metFORMIN] 1,000 mg PO BID 05/01/19 05/01/19 Unknown History Spironolactone [Aldactone] 25 mg PO QDAY 05/01/19 05/01/19 Unknown History carvediloL [Coreg] 25 mg PO DAILY 05/01/19 05/01/19 Unknown History oxyCODONE /ACETAMINOPHEN [Percocet 325 mg PO PRN PRN 05/01/19 05/01/19 Unknown History 5/325 mg] ALPRAZolam [Xanax TAB] 0.25 mg PO BID tablet 05/02/19 Unknown Rx Aspirin [Aspirin BABY CHEW TAB] 81 mg PO QDAY tab.chew 05/02/19 Unknown Rx AtorvaSTATin [Lipitor] 40 mg PO QHS tablet 05/02/19 Unknown Rx Cyclobenzaprine [Flexeril 10 MG 5 mg PO QHS PRN #14 tablet 05/02/19 Unknown Rx TAB] FLUoxetine [PROzac] 10 mg PO QDAY #30 tablet 05/02/19 Unknown Rx amLODIPine 5 mg PO DAILY #1 tablet 05/02/19 Unknown Rx cloNIDine [Catapres] 0.1 mg PO DAILY PRN tablet 05/02/19 Unknown Rx predniSONE 10 mg PO QDAY #5 tablet 05/02/19 Unknown Rx traZODone [Desyrel] 50 mg PO QHS #30 tablet 05/02/19 Unknown Rx glyBURIDE [Diabeta] 2.5 mg PO BID #10 tablet 07/24/19 Unknown Rx HYDROcodone/APAP 5-325 [[place] 1 - 2 each PO Q6HR PRN #14 tablet 03/25/20 Unk nown Rx 5/325] Ibuprofen [Motrin 800 MG tab] 800 mg PO Q8HR PRN #20 tablet 03/25/20 Unknown Rx ED Review of Systems ROS: Stated complaint: CHEST PAIN/SOB Other details as noted in HPI Constitutional: no symptoms reported Eyes: denies: eye pain ENT: denies: throat pain Respiratory: other (Pleurisy). denies: shortness of breath Cardiovascular: chest pain Endocrine: no symptoms reported Gastrointestinal: denies: abdominal pain Genitourinary: denies: dysuria Musculoskeletal: arthralgia Neurological: denies: headache Physical Exam - Physical Exam Vital Signs: Vital Signs 03/25/20 03/25/20 03/25/20 15:00 15:36 15:39 Temperature 98.0 F Pulse Rate 122 H 103 H Respiratory 30 H 17 Rate Blood Pressure 145/115 Blood Pressure 207/130 [Right] O2 Sat by Pulse 95 100 97 Oximetry 03/25/20 15:43 Temperature Pulse Rate 103 H Respiratory 17 Rate Blood Pressure Blood Pressure 145/115 [Right] O2 Sat by Pulse 97 Oximetry Physical Exam: GENERAL: The patient is well-developed well-nourished female lying on stretcher not appearing to be in acute distress. [] HEENT: Normocephalic. Atraumatic. Extraocular motions are intact. Patient has moist mucous membranes. NECK: Supple. Trachea midline CHEST/LUNGS: Clear to auscultation. There is no respiratory distress noted. HEART/CARDIOVASCULAR: Regular. There is no tachycardia. There is no gallop rub or murmur. 2+ radial pulse ABDOMEN: Abdomen is soft, nontender. Patient has normal bowel sounds. There is no abdominal distention. SKIN: There is no rash. There is no edema. There is no diaphoresis. NEURO: The patient is awake, alert, and oriented. The patient is cooperative. The patient has no focal neurologic deficits. The patient has normal speech MUSCULOSKELETAL: There is severe pain with range of motion of the left shoulder. There is no evidence of acute injury. ED Course Vital Signs 03/25/20 03/25/20 03/25/20 15:00 15:36 15:39 Temperature 98.0 F Pulse Rate 122 H 103 H Respiratory 30 H 17 Rate Blood Pressure 145/115 Blood Pressure 207/130 [Right] O2 Sat by Pulse 95 100 97 Oximetry 03/25/20 15:43 Temperature Pulse Rate 103 H Respiratory 17 Rate Blood Pressure Blood Pressure 145/115 [Right] O2 Sat by Pulse 97 Oximetry ED Medical Decision Making - Lab Data Result diagrams: 03/25/20 15:32 03/25/20 15:32 Laboratory Tests 03/25/20 03/25/20 03/25/20 15:32 15:32 15:32 WBC 7.5 RBC 4.41 Hgb 13.0 Hct 39.4 MCV 90 MCH 30 MCHC 33 RDW 16.9 H Plt Count 391 Lymph % (Auto) 42.0 H Petroleum % (Auto) 4.9 Eos % (Auto) 1.2 Baso % (Auto) 0.4 Lymph # (Auto) 3.2 Petroleum # (Auto) 0.4 Eos # (Auto) 0.1 Baso # (Auto) 0.0 Seg Neutrophils % 51.5 Seg Neutrophils # 3.9 Sodium 134 L Potassium 4.2 Chloride 94.9 L Carbon Dioxide 21 L Anion Gap 22 BUN 14 Creatinine 0.8 Estimated GFR > 60 BUN/Creatinine Ratio 18 Glucose 135 H Calcium 10.5 H Total Bilirubin 0.30 Direct Bilirubin < 0.2 Indirect Bilirubin 0.1 AST 36 ALT 19 Alkaline Phosphatase 102 Troponin T < 0.010 Total Protein 8.1 Albumin 4.9 Albumin/Globulin Ratio 1.5 03/25/20 18:43 WBC RBC Hgb Hct MCV MCH MCHC RDW Plt Count Lymph % (Auto) Petroleum % (Auto) Eos % (Auto) Baso % (Auto) Lymph # (Auto) Petroleum # (Auto) Eos # (Auto) Baso # (Auto) Seg Neutrophils % Seg Neutrophils # Sodium Potassium Chloride Carbon Dioxide Anion Gap BUN Creatinine Estimated GFR BUN/Creatinine Ratio Glucose Calcium Total Bilirubin Direct Bilirubin Indirect Bilirubin AST ALT Alkaline Phosphatase Troponin T < 0.010 Total Protein Albumin Albumin/Globulin Ratio - EKG Data -: EKG Interpreted by Me EKG shows normal: sinus rhythm Rate: tachycardia (112 beats per) - EKG Data When compared to previous EKG there are: previous EKG unavailable Interpretation: other (No ischemic changes seen) - Radiology Data Radiology results: report reviewed (VQ scan, chest x-ray), image reviewed (Left shoulder x-ray) interpreted by me: Left shoulder x-ray-no acute fracture, no foreign body, no dislocation [facility] [address] [place] [address] Nuclear Medicine Report Signed Patient: PEE YEUNG MR#: [id number] 42 : 1960 Acct:[id number] Age/Sex: 59 / F ADM Date: 03/25/20 Loc: ED Attending Dr: Ordering Physician: ABBY SYLVESTER MD Date of Service: 03/25/20 Procedure(s): NM perfusion only lung scan Accession Number(s): [id number] cc: ABBY SYLVESTER MD NM perfusion only lung scan INDICATION / CLINICAL INFORMATION: Left shoulder/chest pain. Pleurisy. TECHNIQUE: Dose / Agent / Route: 5.0 mCi technetium MAA, IV COMPARISON: 08/08/2018 FINDINGS: Perfusion images show fairly homogeneous uptake throughout both lungs. IMPRESSION: 1. Low probability of pulmonary embolus. Signer Name: Josh Washburn MD Signed: 03/25/2020 7:36 PM Workstation Name: [id number] Transcribed By: TM Dictated By: Josh Washburn MD Electronically Authenticated By: Josh Washburn MD Signed Date/Time: 03/25/201935 DD/ 34 TD/TT: Chest x-ray (read by radiologist)-no acute findings [facility] [address] [place] [address] XRay Report Signed Patient: PEE YEUNG MR#: [id number] 43 : 1960 Acct:[id number] Age/Sex: 59 / F ADM Date: 03/25/20 Loc: ED Attending Dr: Ordering Physician: ABBY SYLVESTER MD Date of Service: 03/25/20 Procedure(s): XR shoulder 2+V LT Accession Number(s): [id number] cc: ABBY SYLVESTER MD Fluoro Time In Minutes: LEFT SHOULDER 3 VIEW(S) INDICATION / CLINICAL INFORMATION: Pain with range of motion COMPARISON: None available. FINDINGS: BONES / JOINT(S): No acute fracture or subluxation. Mild acromioclavicular joint osteoarthritis. SOFT TISSUES: No significant abnormality. ADDITIONAL FINDINGS: None. IMPRESSION: No acute osseous findings in the left shoulder. Signer Name: Neo Salinas MD Signed: 03/25/2020 5:00 PM Workstation Name: [id number] Transcribed By: BOYD Dictated By: NEO SALINAS MD Electronically Authenticated By: NEO SALINAS MD Signed Date/Time: 03/25/201699 DD/ 99 TD/TT: - Differential Diagnosis Rotator cuff injury, bursitis, ACS, PE Critical care attestation.: If time is entered above; I have spent that time in minutes in the direct care of this critically ill patient, excluding procedure time. ED Disposition Clinical Impression: Injury of left rotator cuff Disposition: - TO HOME OR SELFCARE Is pt being admited?: No Does the pt Need Aspirin: No Condition: Stable Instructions: Rotator Cuff Tear, Rotator Cuff Tendinitis Additional Instructions: Return to the emergency department should you develop worsening symptoms, inability to tolerate food or liquids, high fever or any other concerns Prescriptions: Ibuprofen [Motrin 800 MG tab] 800 mg PO Q8HR PRN #20 tablet PRN Reason: Pain, Moderate (4-6) HYDROcodone/APAP 5-325 [[place] 5/325] 1 - 2 each PO Q6HR PRN #14 tablet PRN Reason: Pain Referrals: NIKI NANCE MD [Staff Physician] - 3-5 Days (Dr. Nance is an or thopedic surgeon. Please follow-up with him for further evaluation) Time of Disposition: 19:47
[2020-03-25] MEDS: SODIUM CHLORIDE 0.9% 1000 ML 1,000 ML IV ONE ×2 (16:36→16:49)
--- NOTE | 2020-03-25 16:40 | XRay Report ---
XR chest 1V ap INDICATION / CLINICAL INFORMATION: chest pain, left sided, substernal. COMPARISON: 05/01/2019 FINDINGS: SUPPORT DEVICES: None. HEART /PULMONARY VASCULATURE: No significant abnormality. LUNGS / PLEURA: No significant pulmonary or pleural abnormality. No pneumothorax. ADDITIONAL FINDINGS: Surgical clips in the right axilla. IMPRESSION: 1. No acute findings. Signer Name: Jefferson Salinas MD Signed: 03/25/2020 4:36 PM Workstation Name: [id number]
--- NOTE | 2020-03-25 17:05 | XRay Report ---
LEFT SHOULDER 3 VIEW(S) INDICATION / CLINICAL INFORMATION: Pain with range of motion COMPARISON: None available. FINDINGS: BONES / JOINT(S): No acute fracture or subluxation. Mild acromioclavicular joint osteoarthritis. SOFT TISSUES: No significant abnormality. ADDITIONAL FINDINGS: None. IMPRESSION: No acute osseous findings in the left shoulder. Signer Name: Jefferson Salinas MD Signed: 03/25/2020 5:00 PM Workstation Name: [id number]
--- NOTE | 2020-03-25 19:40 | Nuclear Medicine Report ---
NM perfusion only lung scan INDICATION / CLINICAL INFORMATION: Left shoulder/chest pain. Pleurisy. TECHNIQUE: Dose / Agent / Route: 5.0 mCi technetium MAA, IV COMPARISON: 08/08/2018 FINDINGS: Perfusion images show fairly homogeneous uptake throughout both lungs. IMPRESSION: 1. Low probability of pulmonary embolus. Signer Name: Josh Washburn MD Signed: 03/25/2020 7:36 PM Workstation Name: [id number]
[2020-03-25 20:20] VITALS: BP 137/89
== END 2020-03-25 20:20 | disposition home or self-care (01) ==
LOC: ED 14:48
DX: S46.001A Unspecified injury of muscle(s) and tendon(s) of the rotator cuff of right shoulder, initial encounter (principal); I10 Essential (primary) hypertension; E11.9 Type 2 diabetes mellitus without complications; M19.91 Primary osteoarthritis, unspecified site; G43.909 Migraine, unspecified, not intractable, without status migrainosus; R56.9 Unspecified convulsions; Z86.73 Personal history of transient ischemic attack (TIA), and cerebral infarction without residual deficits; Z98.890 Other specified postprocedural states; Z79.899 Other long term (current) drug therapy; Z88.8 Allergy status to other drugs, medicaments and biological substances; X58.XXXA Exposure to other specified factors, initial encounter; Y93.89 Activity, other specified; Y92.89 Other specified places as the place of occurrence of the external cause; Y99.8 Other external cause status
CPT/HCPCS: 36415; 71045; 73030; 78580; 80048; 80076; 84484; 85025; 93005; 96361; 96374; 96375; 96376; 99284; A9540; J2405; J3010; J7030

== ENCOUNTER 2020-09-19 17:31 | Emergency (ER) | payer MEDICARE ==
[2020-09-19] MEDS ORDERED: SODIUM CHLORIDE 0.9% 1000 ML 1,000 ML IV ONE (18:06)
[2020-09-19] MEDS ORDERED: ACETAMINOPHEN 325 MG TAB PO ONE (18:06)
[2020-09-19] MEDS ORDERED: BENZONATATE 100 MG CAP PO ONE (18:07)
[2020-09-19] MEDS ORDERED: ACETAMINOPEN W/CODEINE 120-12MG ORAL LIQD 5 ML PO ONE (18:07)
--- NOTE | 2020-09-19 18:09 | Emergency Department Report ---
- General Chief Complaint: Upper Respiratory Infection Stated Complaint: CHEST PAIN ON BREATHING PUI?: Yes Time Seen by Provider: 09/19/20 17:41 Source: patient Mode of arrival: Stretcher Limitations: No Limitations - History of Present Illness Initial Comments: This is a 60-year-old female with a past medical history of diabetes type 2, autoimmune disorder, gastroparesis, atrial fibrillation who presents to the ED complaining of cough, fever, runny nose, congestion that began Friday 3 days ago. Patient states that she went to urgent care on Friday and was told she has allergies and was prescribed Flonase and Claritin. Patient states that since medications are not working the symptoms are getting worse. Patient states today she started running a fever of over 100 Fahrenheit. Patient states that she has been having intermittent dry coughing without no relief. Patient is complaining of throat pain as well as pink eyes. She denies nausea, vomiting, diarrhea, abdominal pain, shortness of breath. MD Complaint: fever, cough, nasal congestion Severity: mild - Related Data Home Medications Medication Instructions Recorded Confirmed Last Taken Linzess 290 mg PO DAILY 08/09/18 05/01/19 Unknown ALPRAZolam [Xanax TAB] 0.25 mg PO BID 05/01/19 05/01/19 Unknown Apixaban [Eliquis] 5 mg PO DAILY 05/01/19 05/01/19 Unknown Atorvastatin Calcium [Lipitor] 40 mg PO HS 05/01/19 05/01/19 Unknown Gabapentin 300 mg PO HS 05/01/19 05/01/19 Unknown Levothyroxine [Synthroid] 25 mcg PO DAILY 05/01/19 05/01/19 Unknown Lidocaine [Lidoderm] 5 each TP DAILY 05/01/19 05/01/19 Unknown Metformin HCl [metFORMIN] 1,000 mg PO BID 05/01/19 05/01/19 Unknown Spironolactone [Aldactone] 25 mg PO QDAY 05/01/19 05/01/19 Unknown carvediloL [Coreg] 25 mg PO DAILY 05/01/19 05/01/19 Unknown oxyCODONE /ACETAMINOPHEN [Percocet 325 mg PO PRN PRN 05/01/19 05/01/19 Unknown 5/325 mg] Previous Rx's Medication Instructions Recorded Last Taken Type ALPRAZolam [Xanax TAB] 0.25 mg PO BID tablet 05/02/19 Unknown Rx Aspirin [Aspirin BABY CHEW TAB] 81 mg PO QDAY tab.chew 05/02/19 Unknown Rx AtorvaSTATin [Lipitor] 40 mg PO QHS tablet 05/02/19 Unknown Rx Cyclobenzaprine [Flexeril 10 MG 5 mg PO QHS PRN #14 tablet 05/02/19 Unknown Rx TAB] FLUoxetine [PROzac] 10 mg PO QDAY #30 tablet 05/02/19 Unknown Rx amLODIPine 5 mg PO DAILY #1 tablet 05/02/19 Unknown Rx cloNIDine [Catapres] 0.1 mg PO DAILY PRN tablet 05/02/19 Unknown Rx predniSONE 10 mg PO QDAY #5 tablet 05/02/19 Unknown Rx traZODone [Desyrel] 50 mg PO QHS #30 tablet 05/02/19 Unknown Rx glyBURIDE [Diabeta] 2.5 mg PO BID #10 tablet 07/24/19 Unknown Rx HYDROcodone/APAP 5-325 [[place] 1 - 2 each PO Q6HR PRN #14 tablet 03/25/20 Unknown Rx 5/325] Albuterol Mdi (or & Nicu Only) 2 puff IH QID PRN #8.5 gram 09/20/20 Unknown Rx [ProAir HFA Inhaler] Benzonatate [Tessalon Perles] 100 mg PO Q8HR #30 capsule 09/20/20 Unknown Rx Ibuprofen [Motrin 800 MG tab] 800 mg PO Q8HR PRN #20 tablet 09/20/20 Unknown Rx Allergies Allergy/AdvReac Type Severity Reaction Status Date / Time acetaminophen [From Tylenol] Allergy Hives Verified 09/19/20 18:29 Iodinated Contrast Media Allergy Anaphylaxis Verified 03/25/20 17:52 Latex, Natural Rubber Allergy dissolves Verified 07/19/13 11:38 skin figs Allergy Shortness Uncoded 07/09/13 14:31 of Breath lettuce Allergy Shortness Uncoded 07/09/13 14:31 of Breath onion Allergy Shortness Uncoded 07/09/13 14:31 of Breath peppers Allergy Shortness Uncoded 07/09/13 14:31 of Breath ED Review of Systems ROS: Stated complaint: CHEST PAIN ON BREATHING Other details as noted in HPI ED Past Medical Hx - Past Medical History Hx Hypertension: Yes (since 2002 Lisinopril) Hx CVA: Yes (x 3) Hx Heart Attack/AMI: No Hx Congestive Heart Failure: No Hx Diabetes: Yes Hx Liver Disease: No Hx Arthritis: Yes (spine) Hx Headaches / Migraines: Yes (migraines) Hx Seizures: Yes (with ) Hx Psychiatric Treatment: Yes (Depression, SI 3/10) Hx Asthma: Yes (childhood) Hx COPD: No Hx HIV: No Additional medical history: Bechets syndrome, hypothyroid, Zambrano's palsy, breast cancer, Afib - Surgical History Hx Breast Surgery: Yes (andrés mastectomy) Additional Surgical History: bilat mastectomy. left knee sx. left eye tumor - Social History Smoking Status: Never Smoker Substance Use Type: None - Medications Home Medications: Home Medications Medication Instructions Recorded Confirmed Last Taken Type Linzess 290 mg PO DAILY 08/09/18 05/01/19 Unknown History ALPRAZolam [Xanax TAB] 0.25 mg PO BID 05/01/19 05/01/19 Unknown History Apixaban [Eliquis] 5 mg PO DAILY 05/01/19 05/01/19 Unknown History Atorvastatin Calcium [Lipitor] 40 mg PO HS 05/01/19 05/01/19 Unknown History Gabapentin 300 mg PO HS 05/01/19 05/01/19 Unknown History Levothyroxine [Synthroid] 25 mcg PO DAILY 05/01/19 05/01/19 Unknown History Lidocaine [Lidoderm] 5 each TP DAILY 05/01/19 05/01/19 Unknown History Metformin HCl [metFORMIN] 1,000 mg PO BID 05/01/19 05/01/19 Unknown History Spironolactone [Aldactone] 25 mg PO QDAY 05/01/19 05/01/19 Unknown History carvediloL [Coreg] 25 mg PO DAILY 05/01/19 05/01/19 Unknown History oxyCODONE /ACETAMINOPHEN [Percocet 325 mg PO PRN PRN 05/01/19 05/01/19 Unknown History 5/325 mg] ALPRAZolam [Xanax TAB] 0.25 mg PO BID tablet 05/02/19 Unknown Rx Aspirin [Aspirin BABY CHEW TAB] 81 mg PO QDAY tab.chew 05/02/19 Unknown Rx AtorvaSTATin [Lipitor] 40 mg PO QHS tablet 05/02/19 Unknown Rx Cyclobenzaprine [Flexeril 10 MG 5 mg PO QHS PRN #14 tablet 05/02/19 Unknown Rx TAB] FLUoxetine [PROzac] 10 mg PO QDAY #30 tablet 05/02/19 Unknown Rx amLODIPine 5 mg PO DAILY #1 tablet 05/02/19 Unknown Rx cloNIDine [Catapres] 0.1 mg PO DAILY PRN tablet 05/02/19 Unknown Rx predniSONE 10 mg PO QDAY #5 tablet 05/02/19 Unknown Rx traZODone [Desyrel] 50 mg PO QHS #30 tablet 05/02/19 Unknown Rx glyBURIDE [Diabeta] 2.5 mg PO BID #10 tablet 07/24/19 Unknown Rx HYDROcodone/APAP 5-325 [[place] 1 - 2 each PO Q6HR PRN #14 tablet 03/25/20 Unkno wn Rx 5/325] Albuterol Mdi (or & Nicu Only) 2 puff IH QID PRN #8.5 gram 09/20/20 Unknown Rx [ProAir HFA Inhaler] Benzonatate [Tessalon Perles] 100 mg PO Q8HR #30 capsule 09/20/20 Unknown Rx Ibuprofen [Motrin 800 MG tab] 800 mg PO Q8HR PRN #20 tablet 09/20/20 Unknown Rx ED Physical Exam - General Limitations: No Limitations General appearance: alert, in no apparent distress - Head Head exam: Present: atraumatic, normocephalic - Eye Eye exam: Present: normal appearance, PERRL, conjunctival injection (bilateral) Pupils: Present: normal accommodation - ENT ENT exam: Present: mucous membranes moist - Neck Neck exam: Present: normal inspection - Respiratory Respiratory exam: Present: normal lung sounds bilaterally, other (cough dry). Absent: respiratory distress, wheezes, chest wall tenderness, accessory muscle use - Cardiovascular Cardiovascular Exam: Present: regular rate, normal rhythm. Absent: systolic murmur, diastolic murmur, rubs, gallop - GI/Abdominal GI/Abdominal exam: Present: soft, normal bowel sounds. Absent: distended, tenderness - Extremities Exam Extremities exam: Present: normal inspection, full ROM - Back Exam Back exam: Present: normal inspection, full ROM - Neurological Exam Neurological exam: Present: alert, oriented X3, normal gait - Psychiatric Psychiatric exam: Present: normal affect, normal mood - Skin Skin exam: Present: warm, dry, intact, normal color. Absent: rash ED Course Vital Signs 09/19/20 09/19/20 09/19/20 17:36 18:12 18:15 Temperature 101 F H Pulse Rate 110 H 109 H 109 H Respiratory 24 17 22 Rate Blood Pressure 150/98 Blood Pressure 138/72 [Right] O2 Sat by Pulse 98 Oximetry 09/19/20 09/19/20 09/19/20 18:17 18:31 18:45 Temperature 100.0 F H Pulse Rate 109 H 107 H Respiratory 15 16 Rate Blood Pressure 150/98 150/98 Blood Pressure [Right] O2 Sat by Pulse Oximetry 09/19/20 09/19/20 09/19/20 19:01 19:15 19:31 Temperature Pulse Rate 102 H 103 H 104 H Respiratory 18 16 19 Rate Blood Pressure 150/98 155/132 150/105 Blood Pressure [Right] O2 Sat by Pulse Oximetry 09/19/20 09/19/20 09/19/20 19:45 20:09 20:15 Temperature Pulse Rate 103 H 101 H 95 H Respiratory 23 13 22 Rate Blood Pressure 150/105 150/105 116/84 Blood Pressure [Right] O2 Sat by Pulse Oximetry 09/19/20 09/19/20 09/19/20 20:30 20:45 21:01 Temperature Pulse Rate 97 H 96 H 94 H Respiratory 22 21 19 Rate Blood Pressure 116/84 108/77 Blood Pressure [Right] O2 Sat by Pulse Oximetry 09/19/20 09/19/20 09/19/20 21:15 21:31 21:45 Temperature Pulse Rate 96 H 94 H 92 H Respiratory 20 17 13 Rate Blood Pressure 108/77 108/77 108/77 Blood Pressure [Right] O2 Sat by Pulse Oximetry 09/19/20 09/19/20 09/19/20 22:01 22:15 22:31 Temperature Pulse Rate 95 H 93 H 90 Respiratory 17 18 18 Rate Blood Pressure 115/76 115/76 108/77 Blood Pressure [Right] O2 Sat by Pulse 97 96 Oximetry 09/19/20 09/19/20 22:45 22:50 Temperature 100.1 F H Pulse Rate 90 Respiratory 19 Rate Blood Pressure 108/77 Blood Pressure [Right] O2 Sat by Pulse Oximetry ED Medical Decision Making - Lab Data Result diagrams: 09/19/20 20:42 09/19/20 20:42 Laboratory Last Values WBC 7.7 K/mm3 (4.5-11.0) 09/19/20 20:42 RBC 4.08 M/mm3 (3.65-5.03) 09/19/20 20:42 Hgb 12.4 gm/dl (10.1-14.3) 09/19/20 20:42 Hct 36.7 % (30.3-42.9) 09/19/20 20:42 MCV 90 fl (79-97) 09/19/20 20:42 MCH 30 pg (28-32) 09/19/20 20:42 MCHC 34 % (30-34) 09/19/20 20:42 RDW 14.8 % (13.2-15.2) 09/19/20 20:42 Plt Count 274 K/mm3 (140-440) 09/19/20 20:42 Lymph % (Auto) 17.5 % (13.4-35.0) 09/19/20 20:42 Christian % (Auto) 7.5 % (0.0-7.3) H 09/19/20 20:42 Eos % (Auto) 1.0 % (0.0-4.3) 09/19/20 20:42 Baso % (Auto) 0.2 % (0.0-1.8) 09/19/20 20:42 Lymph # (Auto) 1.4 K/mm3 (1.2-5.4) 09/19/20 20:42 Christian # (Auto) 0.6 K/mm3 (0.0-0.8) 09/19/20 20:42 Eos # (Auto) 0.1 K/mm3 (0.0-0.4) 09/19/20 20:42 Baso # (Auto) 0.0 K/mm3 (0.0-0.1) 09/19/20 20:42 Seg Neutrophils % 73.8 % (40.0-70.0) H 09/19/20 20:42 Seg Neutrophils # 5.7 K/mm3 (1.8-7.7) 09/19/20 20:42 Sodium 137 mmol/L (137-145) 09/19/20 20:42 Potassium 4.1 mmol/L (3.6-5.0) 09/19/20 20:42 Chloride 100.0 mmol/L (98-107) 09/19/20 20:42 Carbon Dioxide 22 mmol/L (22-30) 09/19/20 20:42 Anion Gap 19 mmol/L 09/19/20 20:42 BUN 10 mg/dL (7-17) 09/19/20 20:42 Creatinine 0.8 mg/dL (0.6-1.2) 09/19/20 20:42 Estimated GFR > 60 ml/min 09/19/20 20:42 BUN/Creatinine Ratio 13 % 09/19/20 20:42 Glucose 129 mg/dL (65-100) H 09/19/20 20:42 Calcium 10.2 mg/dL (8.4-10.2) 09/19/20 20:42 Total Bilirubin 0.30 mg/dL (0.1-1.2) 09/19/20 20:42 AST 23 units/L (5-40) 09/19/20 20:42 ALT 23 units/L (7-56) 09/19/20 20:42 Alkaline Phosphatase 103 units/L (35-129) 09/19/20 20:42 Total Protein 7.3 g/dL (6.3-8.2) 09/19/20 20:42 Albumin 4.1 g/dL (3.9-5) 09/19/20 20:42 Albumin/Globulin Ratio 1.3 % 09/19/20 20:42 Urine Color Yellow (Yellow) 09/19/20 20:04 Urine Turbidity Clear (Clear) 09/19/20 20:04 Urine pH 8.0 (5.0-7.0) H 09/19/20 20:04 Ur Specific [place] 1.008 (1.003-1.030) 09/19/20 20:04 Urine Protein <15 mg/dl mg/dL (Negative) 09/19/20 20:04 Urine Glucose (UA) Neg mg/dL (Negative) 09/19/20 20:04 Urine Ketones Neg mg/dL (Negative) 09/19/20 20:04 Urine Blood Neg (Negative) 09/19/20 20:04 Urine Nitrite Neg (Negative) 09/19/20 20:04 Ur Reducing Substances Not Reportable 09/19/20 20:04 Urine Bilirubin Neg (Negative) 09/19/20 20:04 Urine Ictotest Not Reportable 09/19/20 20:04 Urine Urobilinogen < 2.0 mg/dL (<2.0) 09/19/20 20:04 Ur Leukocyte Esterase Sm (Negative) 09/19/20 20:04 Urine WBC (Auto) 7.0 /HPF (0.0-6.0) H 09/19/20 20:04 Urine RBC (Auto) 1.0 /HPF (0.0-6.0) 09/19/20 20:04 U Epithel Cells (Auto) 1.0 /HPF (0-13.0) 09/19/20 20:04 Urine Bacteria (Auto) 1+ /HPF (Negative) 09/19/20 20:04 Urine HCG, Qual Negative (Negative) 09/19/20 20:04 Vital Signs 09/19/20 09/19/20 09/19/20 17:36 18:12 18:15 Temperature 101 F H Pulse Rate 110 H 109 H 109 H Respiratory 24 17 22 Rate Blood Pressure 150/98 Blood Pressure 138/72 [Right] O2 Sat by Pulse 98 Oximetry 09/19/20 09/19/20 09/19/20 18:17 18:31 18:45 Temperature 100.0 F H Pulse Rate 109 H 107 H Respiratory 15 16 Rate Blood Pressure 150/98 150/98 Blood Pressure [Right] O2 Sat by Pulse Oximetry 09/19/20 09/19/20 09/19/20 19:01 19:15 19:31 Temperature Pulse Rate 102 H 103 H 104 H Respiratory 18 16 19 Rate Blood Pressure 150/98 155/132 150/105 Blood Pressure [Right] O2 Sat by Pulse Oximetry 09/19/20 09/19/20 09/19/20 19:45 20:09 20:15 Temperature Pulse Rate 103 H 101 H 95 H Respiratory 23 13 22 Rate Blood Pressure 150/105 150/105 116/84 Blood Pressure [Right] O2 Sat by Pulse Oximetry 09/19/20 09/19/20 09/19/20 20:30 20:45 21:01 Temperature Pulse Rate 97 H 96 H 94 H Respiratory 22 21 19 Rate Blood Pressure 116/84 108/77 Blood Pressure [Right] O2 Sat by Pulse Oximetry 09/19/20 09/19/20 09/19/20 21:15 21:31 21:45 Temperature Pulse Rate 96 H 94 H 92 H Respiratory 20 17 13 Rate Blood Pressure 108/77 108/77 108/77 Blood Pressure [Right] O2 Sat by Pulse Oximetry 09/19/20 09/19/20 09/19/20 22:01 22:15 22:31 Temperature Pulse Rate 95 H 93 H 90 Respiratory 17 18 18 Rate Blood Pressure 115/76 115/76 108/77 Blood Pressure [Right] O2 Sat by Pulse 97 96 Oximetry 09/19/20 09/19/20 22:45 22:50 Temperature 100.1 F H Pulse Rate 90 Respiratory 19 Rate Blood Pressure 108/77 Blood Pressure [Right] O2 Sat by Pulse Oximetry - Radiology Data Radiology results: report reviewed, image reviewed Fluoro Time In Minutes: CHEST 1 VIEW 1830 INDICATION / CLINICAL INFORMATION: cough/fever COMPARISON: 03/25/2020 FINDINGS: SUPPORT DEVICES: None HEART / MEDIASTINUM: No significant abnormality. LUNGS / PLEURA: No significant pulmonary or pleural abnormality. No pneumothorax. ADDITIONAL FINDINGS: No significant additional findings. IMPRESSION: No significant acute abnormality Signer Name: Isaiah Dietrich MD Signed: 09/19/2020 7:49 PM Workstation Name: [id number] Transcribed By: YUSRA Dictated By: Isaiah Dietrich MD Electronically Authenticated By: Isaiah Dietrich MD Signed Date/Time: 09/19/201948 - Medical Decision Making Patient is presenting with viral-like illness Her vitals are stable, no hypoxia, fever reduced with IV fluids as well as dose of Motrin in the ED No abnormality on physical exam as documented in chart No clinical signs of bacterial pneumonia. Chest x-ray shows no acute symptoms Due to patient presenting with viral-like illness during COVID- pandemic, disc ussed self quarantine with patient, discussed strict return precautions, discussed primary care reexamination advised pt Please increase your water intake over the next several days. May take Motrinas needed for body aches or fever. May take [id number] medication to treat your symptoms. Follow-up with a primary care doctor in the next 2 to 3 days. Return to emergency room immediately for any new or worsening symptoms including but not limited to shortness of breath, difficulty breathin g, severe chest pain, unable to tolerate by mouth intake, etc. Please self quarantine for 2 weeks from the onset of your symptoms. Please do not go out in public. If you are at home around others please wear a mask. If you need to cough or sneeze please do so in a napkin and immediately wash your hands. Wash your hands frequently. Wipe everything down. Critical care attestation.: If time is entered above; I have spent that time in minutes in the direct care of this critically ill patient, excluding procedure time. ED Disposition Clinical Impression: Upper respiratory infection, Bronchitis Disposition: - TO HOME OR SELFCARE Is pt being admited?: No Does the pt Need Aspirin: No Condition: Stable Instructions: Upper Respiratory Infection, Adult, [id number], Cough, Adult, [id number], Chronic Bronchitis (ED) Additional Instructions: Make sure to follow up with the primary care physician as discussed. Take all your medications as you've been prescribed. If you have any worsening symptoms or develop new symptoms please return to ED immediately. Prescriptions: Ibuprofen [Motrin 800 MG tab] 800 mg PO Q8HR PRN #20 tablet PRN Reason: Pain, Moderate (4-6) Albuterol Mdi (or & Nicu Only) [ProAir HFA Inhaler] 2 puff IH QID PRN #8.5 gram PRN Reason: Shortness Of Breath Benzonatate [Tessalon Perles] 100 mg PO Q8HR #30 capsule Referrals: PRIMARY CARE, [Primary Care Provider] - 3-[address] [facility] [Outside] - 3-5 Days [facility] [Outside] - 3-5 Days Forms: Accompanied Note, Work/School Release Form(ED) Time of Disposition: 00:50
[2020-09-19] MEDS ORDERED: diphenhydrAMINE 50 MG/ML VIAL IV ONE (19:24)
[2020-09-19] MEDS ORDERED: KETOROLAC 30 MG/1 ML INJ IV ONE (19:24)
[2020-09-19] MEDS ORDERED: METOCLOPRAMIDE 10 MG/2 ML INJ IV ONE (19:25)
--- NOTE | 2020-09-19 19:54 | XRay Report ---
CHEST 1 VIEW 1830 INDICATION / CLINICAL INFORMATION: cough/fever COMPARISON: 03/25/2020 FINDINGS: SUPPORT DEVICES: None HEART / MEDIASTINUM: No significant abnormality. LUNGS / PLEURA: No significant pulmonary or pleural abnormality. No pneumothorax. ADDITIONAL FINDINGS: No significant additional findings. IMPRESSION: No significant acute abnormality Signer Name: Isaiah Dietrich MD Signed: 09/19/2020 7:49 PM Workstation Name: [id number]
[2020-09-19 20:15] LABS: HCG Qualitative,Urine Negative (Negative)
[2020-09-19 20:16] LABS: Bacteria,Urine 1+ /HPF (Negative); Bilirubin,Urine NEG (Negative); Blood,Urine NEG (Negative); Color,Urine Yellow (Yellow); Protein,Urine <15 mg/dL mg/dL (Negative); Urobilinogen,Urine < 2.0 mg/dL (<2.0)
[2020-09-19 20:54] LABS: Basophils % (Auto) 0.2 % (0.0-1.8); Eosinophils # (Auto) 0.1 K/mm3 (0.0-0.4); Hematocrit 36.7 % (30.3-42.9); Hemoglobin 12.4 gm/dl (10.1-14.3); Lymphocytes # (Auto) 1.4 K/mm3 (1.2-5.4); Lymphocytes % (Auto) 17.5 % (13.4-35.0); Mean Corpuscular HGB Conc 34 % (30-34); Mean Corpuscular Volume 90 fl (79-97); Monocytes # (Auto) 0.6 K/mm3 (0.0-0.8); Monocytes % (Auto) 7.5 % (0.0-7.3); Platelet Count 274 K/mm3 (140-440); Red Blood Count 4.08 M/mm3 (3.65-5.03); Red Cell Distribution Width 14.8 % (13.2-15.2)
[2020-09-19 21:16] LABS: Alanine Aminotransferase 23 units/L (7-56); Albumin 4.1 g/dL (3.9-5); BUN/Creatinine Ratio 13; Blood Urea Nitrogen 10 mg/dL (7-17); Calcium 10.2 mg/dL (8.4-10.2); Hemolysis Index 9
[2020-09-20] MEDS ORDERED: IBUPROFEN 800 MG TAB PO ONE (00:15)
[2020-09-20 01:53] VITALS: BP 109/77
== END 2020-09-20 01:25 | disposition home or self-care (01) ==
LOC: ED 17:31
DX: J40 Bronchitis, not specified as acute or chronic (principal); J06.9 Acute upper respiratory infection, unspecified; I10 Essential (primary) hypertension; E11.9 Type 2 diabetes mellitus without complications; M19.91 Primary osteoarthritis, unspecified site; G43.909 Migraine, unspecified, not intractable, without status migrainosus; R56.9 Unspecified convulsions; F32.9 Major depressive disorder, single episode, unspecified; Z98.890 Other specified postprocedural states; Z79.1 Long term (current) use of non-steroidal anti-inflammatories (NSAID); Z79.899 Other long term (current) drug therapy; Z88.8 Allergy status to other drugs, medicaments and biological substances
CPT/HCPCS: 36415; 71045; 80053; 81001; 81025; 85025; 96361; 96374; 96375; 99284; J1200; J1885; J2765; J7030

== ENCOUNTER 2021-06-05 13:19 | Emergency (ER) | payer MEDICARE | END 2021-06-05 15:54 | disposition left against medical advice (07) | LOC: ED 13:19 | DX: R52 Pain, unspecified (principal); Z53.21 Procedure and treatment not carried out due to patient leaving prior to being seen by health care provider ==